=== PATIENT | male | born 1960 | race Caucasian/White ===

== ENCOUNTER 2017-08-22 14:31 | Inpatient (IN) | payer OTHER ==
[2017-08-22 15:37] LABS: Basophils # (Auto) 0.1 K/mm3 (0.0-0.1); Eosinophils % (Auto) 7.6 % (0.0-4.3); Hematocrit 40.3 % (35.5-45.6); Hemoglobin 13.9 gm/dl (11.8-15.2); Lymphocytes # (Auto) 3.2 K/mm3 (1.2-5.4); Lymphocytes % (Auto) 23.5 % (13.4-35.0); Mean Corpuscular HGB Conc 35 % (32-34); Mean Corpuscular Hemoglobin 33 pg (28-32); Mean Corpuscular Volume 94 fl (84-94); Monocytes # (Auto) 0.8 K/mm3 (0.0-0.8); Monocytes % (Auto) 5.7 % (0.0-7.3); Platelet Count 350 K/mm3 (140-440); Red Blood Count 4.29 M/mm3 (3.65-5.03); Red Cell Distribution Width 13.5 % (13.2-15.2)
[2017-08-22 15:56] LABS: Alanine Aminotransferase 13 units/L (7-56); Albumin 3.8 g/dL (3.9-5); BUN/Creatinine Ratio 29; Blood Urea Nitrogen 20 mg/dL (9-20); Calcium 9.4 mg/dL (8.4-10.2); Hemolysis Index 4
--- NOTE | 2017-08-22 18:55 | XRay Report ---
FINAL REPORT PROCEDURE: XR FOOT 3+V RT TECHNIQUE: RIGHT foot radiographs, AP, lateral, and oblique views. CPT 12204 HISTORY: Infection. Rule out osteomyelitis. Pain. COMPARISON: No prior studies are available for comparison. FINDINGS: Fracture (s) and/or Dislocation(s): None . Alignment: Normal . Joint space(s): Narrowing, osteophytes, sclerosis, and subchondral cystic change of the 1st metatarsophalangeal joint. Mild diffuse narrowing of the distal interphalangeal joints. Soft tissues: Vascular calcification. Bone mineralization: Osteopenia. Foreign bodies: None . Calcaneal spurring: None . IMPRESSION: Osteopenia and degenerative changes of the right foot. No destructive osseous lesions seen. Consider bone scan or MRI if there is continued clinical concern for osteomyelitis that may not be radiographically apparent (and if patient has no contraindication to MRI).
[2017-08-22] MEDS: NOVOLOG SUB-Q SCH (22:00)
[2017-08-23] MEDS ORDERED: MORPHINE IV ONE (01:21)
[2017-08-23] MEDS ORDERED: ZOFRAN IV ONE (01:21)
[2017-08-23] MEDS ORDERED: STERILE IV SCH (01:30)
[2017-08-23] MEDS ORDERED: ZOSYN NICU IV SCH (01:30)
[2017-08-23] MEDS ORDERED: WATER IV SCH (01:30)
[2017-08-23 01:46] LABS: Bacteria,Urine 1+ /HPF (Negative); Bilirubin,Urine NEG (Negative); Blood,Urine NEG (Negative); Color,Urine Straw (Yellow); Nitrite,Urine NEG (Negative); Protein,Urine <15 mg/dL mg/dL (Negative); Urobilinogen,Urine < 2.0 mg/dL (<2.0); WBC,Urine < 1.0 /HPF (0.0-6.0)
[2017-08-23] MEDS ORDERED: VANCOMYCIN/NS 1 GM/250 ML 1 GM/250 ML BAG IV SCH (02:00)
[2017-08-23] MEDS ORDERED: ZOSYN/NS 3.375GM/50ML 3.375 GM/50 ML BAG IV SCH (02:00)
--- NOTE | 2017-08-23 02:07 | Emergency Department Report ---
- General Chief complaint: Skin/Abscess/Foreign Body Stated complaint: RIGHT FOOT INFECTION Time Seen by Provider: 08/23/17 01:12 Source: patient Mode of arrival: Ambulatory Limitations: No Limitations ([place], [place] LANGUAGE IS [place] CITIZEN), Language Barrier - History of Present Illness Initial comments: 57 YO MALE WITH ONE MONTH RIGHT FOOT SKIN BRAK DOWN AND ULCERATIONS ON HIS TOES. PT IS IN 10/10 PAIN AND CANNOT AMBULATE ON HIS RIGHT FOOT. MD complaint: discoloration -: month(s) (1) Tetanus Up to Date: unsure Location: RLE Severity scale (0 -10): 10 Quality: aching, constant Consistency: constant Improves with: none Worsens with: palpation, movement Associated symptoms: denies other symptoms Treatments Prior to Arrival: none - Related Data Allergies Allergy/AdvReac Type Severity Reaction Status Date / Time No Known Allergies Allergy Verified 08/23/17 01:25 Abscess Boil HPI - HPI Chief Complaint: Skin/Abscess/Foreign Body Stated Complaint: RIGHT FOOT INFECTION Time Seen by Provider: 08/23/17 01:12 Allergies/Adverse Reactions: Allergies Allergy/AdvReac Type Severity Reaction Status Date / Time No Known Allergies Allergy Verified 08/23/17 01:25 ED Review of Systems ROS: Stated complaint: RIGHT FOOT INFECTION Other details as noted in HPI Constitutional: denies: chills, fever Eyes: denies: eye pain, eye discharge, vision change ENT: denies: ear pain, throat pain Respiratory: denies: cough, shortness of breath, wheezing Cardiovascular: denies: chest pain, palpitations Endocrine: no symptoms reported Gastrointestinal: denies: abdominal pain, nausea, diarrhea Genitourinary: denies: urgency, dysuria Musculoskeletal: joint swelling, arthralgia. denies: back pain Skin: denies: rash, lesions Neurological: denies: headache, weakness, paresthesias Psychiatric: denies: anxiety, depression Hematological/Lymphatic: denies: easy bleeding, easy bruising ED Past Medical Hx - Past Medical History Hx Diabetes: Yes (IDDM) - Surgical History Past Surgical History?: No ED Physical Exam - General Limitations: No Limitations General appearance: alert, in distress (PAIN) - Head Head exam: Present: atraumatic, normocephalic - Eye Eye exam: Present: normal appearance, EOMI - ENT ENT exam: Present: mucous membranes moist - Neck Neck exam: Present: normal inspection - Respiratory Respiratory exam: Present: normal lung sounds bilaterally. Absent: respiratory distress - Cardiovascular Cardiovascular Exam: Present: regular rate, normal rhythm. Absent: systolic murmur, diastolic murmur, rubs, gallop - GI/Abdominal GI/Abdominal exam: Present: soft, normal bowel sounds - Rectal Rectal exam: Present: deferred - Extremities Exam Extremities exam: Present: full ROM, tenderness (RIGHT FOOT CELLULITIS, ULCERATION OF 5TH AND 1ST TOE) - Back Exam Back exam: Present: normal inspection, full ROM - Neurological Exam Neurological exam: Present: alert, oriented X3, CN II-XII intact - Psychiatric Psychiatric exam: Present: normal affect, normal mood - Skin Skin exam: Present: warm, dry, normal color, rash (RIGHT LOWER EXTREMITY), erythema. Absent: intact (TOE ULCERATION AND 5 RIGHT TOE ULCERATION, ) ED Course Vital Signs 08/22/17 08/22/17 08/23/17 15:01 20:51 00:42 Temperature 97.8 F 98.0 F 98 F Pulse Rate 94 H 92 H 88 Respiratory 18 20 18 Rate Blood Pressure 103/70 109/79 Blood Pressure 129/86 [Left] O2 Sat by Pulse 97 98 100 Oximetry 08/23/17 01:44 Temperature Pulse Rate Respiratory 20 Rate Blood Pressure Blood Pressure [Left] O2 Sat by Pulse Oximetry ED Medical Decision Making - Lab Data Result diagrams: 08/22/17 15:16 08/22/17 15:16 Critical care attestation.: If time is entered above; I have spent that time in minutes in the direct care of this critically ill patient, excluding procedure time. ED Disposition Clinical Impression: Cellulitis and abscess of foot excluding toe Diabetic foot ulcer Qualifiers: Diabetic foot ulcer location: toe Diabetes mellitus type: type 2 Laterality: right Non-pressure ulcer stage: unspecified non-pressure ulcer stage Qualified Code(s): E11.621 - Type 2 diabetes mellitus with foot ulcer; L97.519 - Non- pressure chronic ulcer of other part of right foot with unspecified severity; L97.519 - Non-pressure chronic ulcer of other part of right foot with unspecified severity; L97.519 - Non-pressure chronic ulcer of other part of right foot with unspecified severity; L97.519 - Non-pressure chronic ulcer of other part of right foot with unspecified severity Disposition: DC-09 OP ADMIT IP TO THIS HOSP Is pt being admited?: Yes Does the pt Need Aspirin: No Condition: Stable Instructions: Diabetes Mellitus Type 2 in Adults (ED) Referrals: LEN PEÑALOZA MD [Primary Care Provider] - 3-5 Days Time of Disposition: 02:07 (CASE REVIEWED WITH DR ARIZMENDI AND SHE WILL ADMIT THE PT TO THE HOSPITAL)
--- NOTE | 2017-08-23 02:11 | History and Physical Report ---
History of Present Illness Date of examination: 08/23/17 History of present illness: 57 year old man with history of diabetes and peripheral vascular disease was just discharged from the hospital on August 12. On that admission he had a nonhealing ulcer on the right foot and subsequently underwent revascularization of his right leg. He was discharged home with Bactrim and ciprofloxacin which she completed 3 days ago. He states that the swelling of the right foot never went down. Yesterday he developed increased redness and pain of the right leg and foot, had difficulty ambulating. Complain of chills, no fever Review Of Systems: Constitutional: no weight loss Ears, eyes, nose, mouth and throat: no nasal congestion, no nasal discharge, no sinus pressure, blurry vision, diplopia Neck: No neck pain or rigidity. Cardiovascular: no chest pain, orthopnea, palpitations Respiratory: No cough Gastrointestinal: no abdominal pain, hematochezia Genitourinary : no dysuria, frequency , hematuria Musculoskeletal: no muscle ache Integumentary: no rash, no pruritis Neurological: no parathesias, focal weakness Endocrine: no cold or heat intolerance, no polyuria or polydipsia Hematologic/Lymphatic: no easy bruising, no easy bleeding, no gland swelling Allergic/Immunologic: no urticaria, no angioedema. PAST MEDICAL HISTORY:DM PAST SURGICAL HISTORY: NONE FAMILY HISTORY: Hypertension, diabetes SOCIAL HISTORY: Denies alcohol, tobacco, drugs Medications and Allergies Allergies Allergy/AdvReac Type Severity Reaction Status Date / Time No Known Allergies Allergy Verified 08/23/17 01:25 Active Meds: Active Medications Piperacillin Sod/Tazobactam Sod (Zosyn/Ns 3.375gm/50ml) 3.375 gm in 50 mls @ 100 mls/hr IV Q8H [facility] Vancomycin HCl 1,250 mg/ (Sodium Chloride) 262.5 mls @ 166.667 mls/hr IV Q12H [facility] Exam - Physical Exam Narrative exam: Gen. appearance: Patient lying in bed in no acute distress HEENT: Normocephalic/atraumatic, pupils equal round reactive to light, extra alkaline movement intact, no scleral icterus, no JVD or thyromegaly or nodule, neck is supple, mucous membrane moist, no erythema or exudate Heart: S1-S2, regular rate and rhythm Lungs: Crackles bilateral breathing comfortable Abdomen: Positive bowel sounds, nontender, nondistended, no organomegaly Extremities:Right foot erythema, tender, also on the great toe and noted between medial aspect of the fifth digit, No edema, cyanosis, clubbing Neuro:: Oriented 3 , cranial nerves II-12 intact, speech, motor intact Skin: No rash, nodules, warm dry - Constitutional Vitals: Temp Pulse Resp BP Pulse Ox 98 F 88 20 129/86 100 08/23/17 00:42 08/23/17 00:42 08/23/17 01:44 08/23/17 00:42 08/23/17 00:42 Results - Labs CBC & Chem 7: 08/22/17 15:16 08/22/17 15:16 Labs: Abnormal lab results 08/22/17 08/22/17 Range/Units 15:16 15:16 WBC 13.5 H (4.5-11.0) K/mm3 MCH 33 H (28-32) pg MCHC 35 H (32-34) % Eos % (Auto) 7.6 H (0.0-4.3) % Eos # 1.0 H (0.0-0.4) K/mm3 Seg Neutrophils # 8.4 H (1.8-7.7) K/mm3 Sodium 135 L (137-145) mmol/L Chloride 93.3 L (98-107) mmol/L Creatinine 0.7 L (0.8-1.5) mg/dL Glucose 332 H (75-100) mg/dL Alkaline Phosphatase 144 H (35-129) units/L Albumin 3.8 L (3.9-5) g/dL Assessment and Plan X-ray of the foot reviewed Assessment Cellulitis and ulcers of the right foot Peripheral vascular disease, Status post revascularization of the right leg DM Admit to medicine Start IV Zosyn, vancomycin, follow cultures Consult Dr. Kee IV morphine, check fingersticks,, initiate insulin sliding scale DVT prophalaxis
[2017-08-23] MEDS ORDERED: MILK OF MAGNESIA PO PRN (02:13)
[2017-08-23] MEDS ORDERED: D50W (25GM) Syringe IV PRN ×2 (02:13→09:37)
[2017-08-23] MEDS ORDERED: DULCOLAX PR PRN (02:13)
[2017-08-23] MEDS ORDERED: ZOFRAN IV PRN (02:13)
[2017-08-23] MEDS ORDERED: BOOSTRIX IM ONE (02:14)
[2017-08-23] MEDS: VANCOMYCIN 1,250 MG in NACL 0.9% 250ML 250 ML IV SCH ×2 (02:25→13:47)
[2017-08-23] MEDS: MORPHINE IV PRN ×4 (04:29→22:53)
[2017-08-23] MEDS: ZOSYN/NS 4.5GM/100ML 4.5 GM/100 ML VIAL IV SCH ×2 (08:18→18:31)
[2017-08-23] MEDS ORDERED: LOVENOX SUB-Q SCH (10:00)
[2017-08-23] MEDS: PLAVIX PO SCH (10:44)
[2017-08-23] MEDS: BABY ASPIRIN PO SCH (10:44)
[2017-08-23] MEDS: LOVENOX SUB-Q SCH (10:44)
[2017-08-23 10:47] LABS: Chol/HDL Ratio 5.75 %
[2017-08-23] MEDS: LEVEMIR SUB-Q SCH ×2 (10:51→22:49)
--- NOTE | 2017-08-23 11:11 | Consultation ---
History of Present Illness - Reason for Consult Consult date: 08/23/17 Right foot pain - History of Present Illness 57 year old man with history of diabetes and peripheral vascular disease was just discharged from the hospital on August 12. On that admission he had a nonhealing ulcer on the right foot and right sided rest pain with claudication and subsequently underwent revascularization of his right leg. He was discharged home with Bactrim and ciprofloxacin which he completed 3 days ago. He never followed up with wound care. Yesterday developed increased redness and pain of the right leg and foot, and had difficulty ambulating. On physical examination, the patient has a small eschar of the first digit, and an ulceration between the interspaces of his fourth and fifth digit. The fifth digit has some paleness concerning for underlying infection/purulence. He has a bounding right popliteal pulse and a palpable right dorsalis pedis pulse. He is a mild amount of right lower extremity swelling, secondary to his reperfusion swelling which is an expected postprocedural outcome. Past History Past Medical History: diabetes, PVD Past Surgical History: Other (revasc 08/17) Social history: denies: smoking, alcohol abuse, IV drug use Family history: no significant family history Medications and Allergies Allergies Allergy/AdvReac Type Severity Reaction Status Date / Time No Known Allergies Allergy Verified 08/23/17 01:25 Active Meds: Active Medications Acetaminophen (Tylenol) 650 mg PO Q4H PRN PRN Reason: Pain MILD(1-3)/Fever >100.5/VIVAS Aspirin (Baby Aspirin) 81 mg PO QDAY [facility] Last Admin: 08/23/17 10:44 Dose: 81 mg Bisacodyl (Dulcolax) 10 mg [place] QDAY PRN PRN Reason: Constipation unrelieved by MOM Clopidogrel Bisulfate (Plavix) 75 mg PO DAILY [facility] Last Admin: 08/23/17 10:44 Dose: 75 mg Dextrose (D50w (25gm) Syringe) 50 ml IV PRN PRN PRN Reason: Hypoglycemia Enoxaparin Sodium (Lovenox) 40 mg SUB-Q QDAY@1000 [facility] Last Admin: 08/23/17 10:44 Dose: 40 mg Vancomycin HCl 1,250 mg/ (Sodium Chloride) 262.5 mls @ 166.667 mls/hr IV Q12H [facility] Last Admin: 08/23/17 02:25 Dose: 166.667 mls/hr Piperacillin Sod/Tazobactam Sod (Zosyn/Ns 4.5gm/100ml) 4.5 gm in 100 mls @ 200 mls/hr IV Q8H [facility] PRN Reason: Protocol Last Admin: 08/23/17 08:18 Dose: 200 mls/hr Insulin Aspart (Novolog) 0 units SUB-Q ACHS [facility] PRN Reason: Protocol Insulin Detemir (Levemir) 10 units SUB-Q BID [facility] Last Admin: 08/23/17 10:51 Dose: 10 units Magnesium Hydroxide (Milk Of Magnesia) 30 ml PO Q4H PRN PRN Reason: Constipation Morphine Sulfate (Morphine) 2 mg IV Q4H PRN PRN Reason: Pain, Moderate (4-6) Last Admin: 08/23/17 10:48 Dose: 2 mg Ondansetron HCl (Zofran) 4 mg IV Q8H PRN PRN Reason: N/V unrelieved by Reglan Review of Systems All systems: negative (see HPI) Constitutional: no fever (see HPI) Exam - Constitutional Vitals: Temp Pulse Resp BP Pulse Ox 98.1 F 87 20 126/81 99 08/23/17 07:48 08/23/17 07:48 08/23/17 07:48 08/23/17 07:48 08/23/17 08:01 General appearance: Present: no acute distress - EENT Eyes: Present: EOM intact ENT: hearing intact - Respiratory Respiratory effort: normal - Extremities Extremities: pulses intact (right DP, right popliteal) Extremity abnormal: edema (mild RLE), erythema (mild RLE), black (small eschar on 5th and 1st digit), pulses diminished (left pedal pulses nonpalpable), other (purulence between 4-5th digit web space) - Psychiatric Psychiatric: appropriate mood/affect, cooperative Results - Labs CBC & Chem 7: 08/22/17 15:16 08/22/17 15:16 Labs: Abnormal lab results 08/22/17 08/22/17 08/23/17 Range/Units 15:16 15:16 05:44 WBC 13.5 H (4.5-11.0) K/mm3 MCH 33 H (28-32) pg MCHC 35 H (32-34) % Eos % (Auto) 7.6 H (0.0-4.3) % Eos # 1.0 H (0.0-0.4) K/mm3 Seg Neutrophils # 8.4 H (1.8-7.7) K/mm3 Sodium 135 L (137-145) mmol/L Chloride 93.3 L (98-107) mmol/L Creatinine 0.7 L (0.8-1.5) mg/dL Glucose 332 H (75-100) mg/dL POC Glucose 313 H (70-105) Alkaline Phosphatase 144 H (35-129) units/L Albumin 3.8 L (3.9-5) g/dL Triglycerides (2-149) mg/dL HDL Cholesterol (40-59) mg/dL 08/23/ Range/Units 10:01 WBC (4.5-11.0) K/mm3 MCH (28-32) pg MCHC (32-34) % Eos % (Auto) (0.0-4.3) % Eos # (0.0-0.4) K/mm3 Seg Neutrophils # (1.8-7.7) K/mm3 Sodium (137-145) mmol/L Chloride (98-107) mmol/L Creatinine (0.8-1.5) mg/dL Glucose (75-100) mg/dL POC Glucose (70-105) Alkaline Phosphatase (35-129) units/L Albumin (3.9-5) g/dL Triglycerides 215 H (2-149) mg/dL HDL Cholesterol 32 L (40-59) mg/dL Assessment and Plan 57-year-old male with peripheral vascular disease and diabetic neuropathy who previously presented with rest pain of the right lower extremity and nonhealing ulcers who subsequently underwent successful revascularization of the right lower extremity with good technical result. Continue aspirin and Plavix. He continues to have a palpable right popliteal pulse and dorsalis pedis pulse compatible with his prior successful revascularization. I will obtain an arterial duplex of the with ABIs to ensure adequate healing and that no re-intervention needs to be performed. The patient's diabetic infection appears to have worsened. Agree with IV antibiotics as oral antibiotics were unsuccessful. Agree with wound culture of the fourth and fifth digit as empiric therapy was unsuccessful. Consider infectious disease consult. Recommend wound care consult for the fifth digit, fourth to fifth digit interspace, and first digit. The infection appears to be arising from the fourth to fifth digit interspace in the fifth digit.
[2017-08-23] MEDS: NOVOLOG SUB-Q SCH ×2 (12:14→17:23)
--- NOTE | 2017-08-23 12:49 | Progress Note ---
Assessment and Plan Assessment and plan: Cellulitis with abscess collection of the right foot - Vascular surgery consulted and evaluated, blood flow is good - Dr. Jensen consulted for debridement - Patient is on IV vancomycin and Zosyn Diabetes mellitus with hyperglycemia - Patient is on SS insulin and long-acting insulin - Accu-Chek, adjust as needed DVT prophylaxis - On lovenox Disposition - Continue inpatient care. History Interval history: Patient was seen and evaluated this morning, no new complaints. Hospitalist Physical - Physical exam Narrative exam: Not in cardiopulmonary distress. The patient appeared well nourished and normally developed. Vital signs as documented. Head exam is unremarkable. No scleral icterus . Neck is without jugular venous distension, thyromegaly, or carotid bruits. Lungs are clear to auscultation. Cardiac exam reveals regular rate and Rhythm. First and second heart sounds normal. No murmurs, rubs or gallops. Abdominal exam reveals normal bowel sounds, no masses, no organomegaly and no aortic enlargement. Extremities erythematous right foot, looks like abscess on the 5th toes. [employer]: Alert and oriented 3. No focal weakness. - Constitutional Vitals: Temp Pulse Resp BP Pulse Ox 98.1 F 87 20 126/81 99 08/23/17 07:48 08/23/17 07:48 08/23/17 07:48 08/23/17 07:48 08/23/17 08:01 General appearance: Present: no acute distress Results - Labs CBC & Chem 7: 08/22/17 15:16 08/22/17 15:16 Labs: Laboratory Last Values WBC 13.5 K/mm3 (4.5-11.0) H 08/22/17 15:16 RBC 4.29 M/mm3 (3.65-5.03) 08/22/17 15:16 Hgb 13.9 gm/dl (11.8-15.2) 08/22/17 15:16 Hct 40.3 % (35.5-45.6) 08/22/17 15:16 MCV 94 fl (84-94) 08/22/17 15:16 MCH 33 pg (28-32) H 08/22/17 15:16 MCHC 35 % (32-34) H 08/22/17 15:16 RDW 13.5 % (13.2-15.2) 08/22/17 15:16 Plt Count 350 K/mm3 (140-440) 08/22/17 15:16 Lymph % (Auto) 23.5 % (13.4-35.0) 08/22/17 15:16 [place] % (Auto) 5.7 % (0.0-7.3) 08/22/17 15:16 Eos % (Auto) 7.6 % (0.0-4.3) H 08/22/17 15:16 Baso % (Auto) 1.0 % (0.0-1.8) 08/22/17 15:16 Lymph # 3.2 K/mm3 (1.2-5.4) 08/22/17 15:16 [place] # 0.8 K/mm3 (0.0-0.8) 08/22/17 15:16 Eos # 1.0 K/mm3 (0.0-0.4) H 08/22/17 15:16 Baso # 0.1 K/mm3 (0.0-0.1) 08/22/17 15:16 Seg Neutrophils % 62.2 % (40.0-70.0) 08/22/17 15:16 Seg Neutrophils # 8.4 K/mm3 (1.8-7.7) H 08/22/17 15:16 Sodium 135 mmol/L (137-145) L 08/22/17 15:16 Potassium 4.8 mmol/L (3.6-5.0) 08/22/17 15:16 Chloride 93.3 mmol/L (98-107) L 08/22/17 15:16 Carbon Dioxide 27 mmol/L (22-30) 08/22/17 15:16 Anion Gap 20 mmol/L 08/22/17 15:16 BUN 20 mg/dL (9-20) 08/22/17 15:16 Creatinine 0.7 mg/dL (0.8-1.5) L 08/22/17 15:16 Estimated GFR > 60 ml/min 08/22/17 15:16 BUN/Creatinine Ratio 29 % 08/22/17 15:16 Glucose 332 mg/dL (75-100) H 08/22/17 15:16 POC Glucose 321 (70-105) H 08/23/17 11:46 Hemoglobin A1c 12.3 % (4-6) H 08/23/17 10:01 Lactic Acid 1.80 mmol/L (0.7-2.0) 08/22/17 18:03 Calcium 9.4 mg/dL (8.4-10.2) 08/22/17 15:16 Total Bilirubin 0.20 mg/dL (0.1-1.2) 08/22/17 15:16 AST 11 units/L (5-40) 08/22/17 15:16 ALT 13 units/L (7-56) 08/22/17 15:16 Alkaline Phosphatase 144 units/L (35-129) H 08/22/17 15:16 Total Protein 7.1 g/dL (6.3-8.2) 08/22/17 15:16 Albumin 3.8 g/dL (3.9-5) L 08/22/17 15:16 Albumin/Globulin Ratio 1.2 % 08/22/17 15:16 Triglycerides 215 mg/dL (2-149) H 08/23/17 10:01 Cholesterol 184 mg/dL (50-199) 08/23/17 10:01 LDL Cholesterol Direct 109 mg/dL (50-130) 08/23/17 10:01 HDL Cholesterol 32 mg/dL (40-59) L 08/23/17 10:01 Cholesterol/HDL Ratio 5.75 % 08/23/17 10:01 Urine Color Straw (Yellow) 08/22/17 Unknown Urine Turbidity Clear (Clear) 08/22/17 Unknown Urine pH 6.0 (5.0-7.0) 08/22/17 Unknown Ur Specific [place] 1.011 (1.003-1.030) 08/22/17 Unknown Urine Protein <15 mg/dl mg/dL (Negative) 08/22/17 Unknown Urine Glucose (UA) >=500 mg/dL (Negative) 08/22/17 Unknown Urine Ketones Neg mg/dL (Negative) 08/22/17 Unknown Urine Blood Neg (Negative) 08/22/17 Unknown Urine Nitrite Neg (Negative) 08/22/17 Unknown Urine Bilirubin Neg (Negative) 08/22/17 Unknown Urine Urobilinogen < 2.0 mg/dL (<2.0) 08/22/17 Unknown Ur Leukocyte Esterase Neg (Negative) 08/22/17 Unknown Urine WBC (Auto) < 1.0 /HPF (0.0-6.0) 08/22/17 Unknown Urine RBC (Auto) 1.0 /HPF (0.0-6.0) 08/22/17 Unknown Urine Bacteria (Auto) 1+ /HPF (Negative) 08/22/17 Unknown
--- NOTE | 2017-08-23 19:10 | Consultation ---
History of Present Illness Consult date: 08/23/17 Reason for consult: other (Diabetic right foot infection) - History of present illness History of present illness: 57 yo diabetic s/p recent revascularization of his RLE for rest pain. He was admitted for a worsening right foot infection. Past History Past Medical History: diabetes, PVD Past Surgical History: Other (revasc 08/17) Social history: denies: smoking, alcohol abuse, IV drug use Family history: no significant family history Medications and Allergies Allergies Allergy/AdvReac Type Severity Reaction Status Date / Time No Known Allergies Allergy Verified 08/23/17 01:25 Active Meds: Active Medications Acetaminophen (Tylenol) 650 mg PO Q4H PRN PRN Reason: Pain MILD(1-3)/Fever >100.5/VIVAS Aspirin (Baby Aspirin) 81 mg PO QDAY [facility] Last Admin: 08/23/17 10:44 Dose: 81 mg Bisacodyl (Dulcolax) 10 mg [place] QDAY PRN PRN Reason: Constipation unrelieved by MOM Clopidogrel Bisulfate (Plavix) 75 mg PO DAILY [facility] Last Admin: 08/23/17 10:44 Dose: 75 mg Dextrose (D50w (25gm) Syringe) 50 ml IV PRN PRN PRN Reason: Hypoglycemia Enoxaparin Sodium (Lovenox) 40 mg SUB-Q QDAY@1000 [facility] Last Admin: 08/23/17 10:44 Dose: 40 mg Vancomycin HCl 1,250 mg/ (Sodium Chloride) 262.5 mls @ 166.667 mls/hr IV Q12H [facility] Last Admin: 08/23/17 13:47 Dose: 166.667 mls/hr Piperacillin Sod/Tazobactam Sod (Zosyn/Ns 4.5gm/100ml) 4.5 gm in 100 mls @ 200 mls/hr IV Q8H [facility] PRN Reason: Protocol Last Admin: 08/23/17 18:31 Dose: 200 mls/hr Insulin Aspart (Novolog) 0 units SUB-Q ACHS [facility] PRN Reason: Protocol Last Admin: 08/23/17 17:23 Dose: 10 units Insulin Detemir (Levemir) 10 units SUB-Q BID [facility] Last Admin: 08/23/17 10:51 Dose: 10 units Magnesium Hydroxide (Milk Of Magnesia) 30 ml PO Q4H PRN PRN Reason: Constipation Morphine Sulfate (Morphine) 2 mg IV Q4H PRN PRN Reason: Pain, Moderate (4-6) Last Admin: 08/23/17 17:08 Dose: 2 mg Ondansetron HCl (Zofran) 4 mg IV Q8H PRN PRN Reason: N/V unrelieved by Reglan Review of Systems All systems: negative Exam Vital Signs Temp Pulse Resp BP Pulse Ox 97.8 F 94 H 18 103/70 97 08/22/17 15:01 08/22/17 15:01 08/22/17 15:01 08/22/17 15:01 08/22/17 15:01 - Extremities Extremities: abnormal (Right foot has a 2+ DP pulse. There is an ulceration on the medial aspect of his right 5th toe with apparent dry, necrotic SQ tissue and possibly tendon. There is no drainage from this ulceration. I cannot appreciate any findings c/w an abscess of the adjacent area.) Results - Labs 08/22/17 15:16 08/22/17 15:16 Abnormal lab results 08/23/17 08/23/17 08/23/17 Range/Units 05:44 10:01 10:01 POC Glucose 313 H (70-105) Hemoglobin A1c 12.3 H (4-6) % Triglycerides 215 H (2-149) mg/dL HDL Cholesterol 32 L (40-59) mg/dL 08/23/17 08/23/17 Range/Units 11:46 16:10 POC Glucose 321 H 411 H (70-105) Hemoglobin A1c (4-6) % Triglycerides (2-149) mg/dL HDL Cholesterol (40-59) mg/dL Diabetes panel 08/23/17 08/23/17 Range/Units 10:01 10:01 Hemoglobin A1c 12.3 H (4-6) % Triglycerides 215 H (2-149) mg/dL HDL Cholesterol 32 L (40-59) mg/dL Assessment and Plan - Patient Problems (1) Diabetic foot ulcer Current Visit: Yes Status: Acute Qualifiers: Diabetic foot ulcer location: toe Diabetes mellitus type: type 2 Laterality: right Non-pressure ulcer stage: unspecified non-pressure ulcer stage Qualified Code(s): E11.621 - Type 2 diabetes mellitus with foot ulcer; L97.519 - Non-pressure chronic ulcer of other part of right foot with unspecified severity; L97.519 - Non-pressure chronic ulcer of other part of right foot with unspecified severity; L97.519 - Non-pressure chronic ulcer of other part of right foot with unspecified severity; L97.519 - Non-pressure chronic ulcer of other part of right foot with unspecified severity Plan to address problem: 1) Strict DM control 2) Continue antibiotics 3) Check LE arterial doppler result 4) MRI of right foot to r/o abscess
[2017-08-24] MEDS: VANCOMYCIN 1,250 MG in NACL 0.9% 250ML 250 ML IV SCH ×2 (02:00→14:39)
[2017-08-24 05:32] LABS: Hematocrit 38.5 % (35.5-45.6); Hemoglobin 12.9 gm/dl (11.8-15.2); Mean Corpuscular HGB Conc 34 % (32-34); Mean Corpuscular Hemoglobin 32 pg (28-32); Mean Corpuscular Volume 94 fl (84-94); Platelet Count 374 K/mm3 (140-440); Red Blood Count 4.11 M/mm3 (3.65-5.03); Red Cell Distribution Width 13.3 % (13.2-15.2)
[2017-08-24] MEDS: MORPHINE IV PRN ×4 (05:51→22:46)
[2017-08-24 05:54] LABS: BUN/Creatinine Ratio 24; Blood Urea Nitrogen 19 mg/dL (9-20); Calcium 8.9 mg/dL (8.4-10.2); Hemolysis Index 3
[2017-08-24 07:29] LABS: Anisocytosis 1+; Basophils % (Manual) 0 % (0.0-1.8); Burr Cells Rare; Total Cells Counted 100
[2017-08-24] MEDS: NOVOLOG SUB-Q SCH ×4 (07:30→22:57)
[2017-08-24] MEDS: ZOSYN/NS 4.5GM/100ML 4.5 GM/100 ML VIAL IV SCH ×3 (08:00→16:17)
[2017-08-24] MEDS: LOVENOX SUB-Q SCH (10:25)
[2017-08-24] MEDS: PLAVIX PO SCH (10:25)
[2017-08-24] MEDS: BABY ASPIRIN PO SCH (10:25)
[2017-08-24] MEDS: LEVEMIR SUB-Q SCH ×2 (10:26→22:56)
--- NOTE | 2017-08-24 12:02 | Progress Note ---
Assessment and Plan 57-year-old male with peripheral vascular disease and diabetic neuropathy who previously presented with rest pain of the right lower extremity and nonhealing ulcers who subsequently underwent successful revascularization of the right lower extremity with good technical result. Continue aspirin and Plavix. He continues to have a palpable right popliteal pulse and dorsalis pedis pulse compatible with his prior successful revascularization. Arterial duplex confirms adequate perfusion to the right lower extremity (JOSHUA aprox 1), although there are some monophasic waveforms suggesting some element of residual superficial femoral artery narrowing. The patient should have adequate flow to heal. He will need to follow-up for monitoring as an outpatient. Agree with wound culture of the fourth and fifth digit as empiric therapy was unsuccessful. Consider infectious disease consult. Will defer management of wounds to Dr. Jensen and wound care. Subjective Date of service: 08/24/17 Interval history: On antibiotics. Arterial duplex performed. MRI being performed. Objective - Constitutional Vitals: Vital Signs - 12hr 08/24/17 08/24/17 08/24/17 05:51 06:21 07:23 Temperature 98.7 F Pulse Rate 82 Respiratory 18 18 20 Rate Blood Pressure 124/73 O2 Sat by Pulse 94 Oximetry - Labs CBC & Chem 7: 08/24/17 05:17 08/24/17 05:17 Labs: Abnormal lab results 08/23/17 08/23/17 08/24/17 Range/Units 16:10 21:17 05:17 WBC 13.9 H (4.5-11.0) K/mm3 Monocytes % (Manual) 8.0 H (0.0-7.3) % Eosinophils % (Manual) 18.0 H (0.0-4.3) % Monocytes # (Manual) 1.1 H (0.0-0.8) K/mm3 Eosinophils # (Manual) 2.5 H (0.0-0.4) K/mm3 Glucose (75-100) mg/dL POC Glucose 411 H 183 H (70-105) 08/24/17 08/24/17 08/24/17 Range/Units 05:17 05:25 11:08 WBC (4.5-11.0) K/mm3 Monocytes % (Manual) (0.0-7.3) % Eosinophils % (Manual) (0.0-4.3) % Monocytes # (Manual) (0.0-0.8) K/mm3 Eosinophils # (Manual) (0.0-0.4) K/mm3 Glucose 142 H (75-100) mg/dL POC Glucose 143 H 273 H (70-105)
--- NOTE | 2017-08-24 13:44 | Magnetic Resonance Report ---
FINAL REPORT EXAM: MR LE NONJOINT RT WO/W CON HISTORY: Ulcer of right 5th toe TECHNIQUE: Fat sensitive and fluid sensitive MR sequences of the right foot were performed in axial, coronal and sagittal planes. Pre and post-contrast imaging performed. PRIORS: None. FINDINGS: There is some edema involving the 1st distal phalanx. There is also edema involving the 5th digit., Mostly the 5th proximal phalanx. Post-contrast images demonstrate enhancement involving the 5th proximal phalanx. I cannot exclude osteomyelitis this region. There is mild enhancement of the 1st distal phalanx. There is no bony edema involving the midfoot or posterior foot. A IMPRESSION: There is bone edema and enhancement involving the 5th proximal phalanx. This could be compatible with osteomyelitis. There is also nonspecific likes notable edema and enhancement involving the 1st distal phalanx. Osteomyelitis in this area also not excluded.
--- NOTE | 2017-08-24 15:21 | Vascular Lab Report ---
LOWER EXTREMITY ARTERIAL DUPLEX: REASON FOR EXAM: Peripheral arterial disease. COMMENTS ON THE RIGHT: Triphasic waveforms are seen proximally. Monophasic waveforms are seen in the superficial femoral artery with preserved flow velocities. Monophasic waveforms are seen distally. The posterior tibial artery has a diminutive velocity of 24 CM/S. The anterior tibial artery has a preserved velocity similar to the popliteal artery velocity. There is a significant drop in velocities from the popliteal artery to the posterior tibial artery. No focal significant plaque is identified. Findings are consistent with abnormal perfusion. Findings are consistent with the ability to heal distal wounds. COMMENTS ON THE LEFT: Biphasic and triphasic waveforms are seen proximally. Biphasic and triphasic waveforms are seen in the proximal and mid superficial femoral artery with monophasic waveform seen in the distal superficial femoral artery. Monophasic waveforms are seen distally. There is a decline in velocities from the mid superficial femoral artery to the distal superficial femoral artery.Findings are consistent with abnormal perfusion. Findings are possibly compromised with the ability to heal distal wounds. IMPRESSION: RIGHT: There is an element of arterial disease in the superficial femoral artery which should be correlated to physical exam. The posterior tibial artery has decreased flow within it. Correlate to ABIs. LEFT:Femoral-popliteal and infrapopliteal arterial disease.
--- NOTE | 2017-08-24 20:45 | Progress Note ---
Assessment and Plan Assessment and plan: 57 yo diabetic, with diabetic neuropathy s/p recent revascularization of his RLE for rest pain. He was admitted for a worsening right foot infection. Cellulitis with abscess collection of the right foot - Vascular surgery consulted and evaluated, blood flow is good - Dr. Jensen consulted for debridement - Patient is on IV vancomycin and Zosyn - ID consult Osteomylitis -ID consult -Continue IV abx -Wound care consult Diabetes mellitus with hyperglycemia - Patient is on SS insulin and long-acting insulin - Accu-Chek, adjust as needed Severe PVD -Continue plavix and aspirin. Start Statin -s/p RLE Revascularization -Vascular following. DVT prophylaxis - On lovenox Disposition - Continue inpatient care. History Interval history: Patient seen and examined, still with pain in the right lower ext, denies any chest pain, nausea, vomiting and diarrhea. Hospitalist Physical - Constitutional Vitals: Temp Pulse Resp BP Pulse Ox 99.0 F 88 20 107/75 98 08/24/17 19:45 08/24/17 19:45 08/24/17 19:45 08/24/17 19:45 08/24/17 19:45 General appearance: Present: no acute distress - EENT Eyes: Present: PERRL, EOM intact ENT: hearing intact - Neck Neck: Present: supple, normal ROM - Respiratory Respiratory effort: normal Respiratory: bilateral: CTA - Cardiovascular Rhythm: regular Heart Sounds: Present: S1 & S2. Absent: systolic murmur, diastolic murmur - Extremities Extremities: no ischemia, pulses intact, Full ROM Extremity abnormal: edema (1+ edema right lower ext), erythema (RLE) Peripheral Pulses: abnormal (diminshed right edema (mild RLE), erythema (mild RLE), black (small eschar on 5th and 1st digit), pulses diminished other ( purulence between 4-5th digit web space)) - Abdominal General gastrointestinal: soft, non-tender, non-distended, normal bowel sounds - Integumentary Integumentary: Present: warm (right lower ext), erythema - Psychiatric Psychiatric: appropriate mood/affect, cooperative - Neurologic Neurologic: CNII-XII intact Results - Labs CBC & Chem 7: 08/25/17 05:02 08/24/17 05:17 Labs: Laboratory Last Values WBC 13.9 K/mm3 (4.5-11.0) H 08/24/17 05:17 RBC 4.11 M/mm3 (3.65-5.03) 08/24/17 05:17 Hgb 12.9 gm/dl (11.8-15.2) 08/24/17 05:17 Hct 38.5 % (35.5-45.6) 08/24/17 05:17 MCV 94 fl (84-94) 08/24/17 05:17 MCH 32 pg (28-32) 08/24/17 05:17 MCHC 34 % (32-34) 08/24/17 05:17 RDW 13.3 % (13.2-15.2) 08/24/17 05:17 Plt Count 374 K/mm3 (140-440) 08/24/17 05:17 Lymph % (Auto) 23.5 % (13.4-35.0) 08/22/17 15:16 [place] % (Auto) 5.7 % (0.0-7.3) 08/22/17 15:16 Eos % (Auto) [employer] 08/24/17 05:17 Baso % (Auto) 1.0 % (0.0-1.8) 08/22/17 15:16 Lymph # 3.2 K/mm3 (1.2-5.4) 08/22/17 15:16 [place] # 0.8 K/mm3 (0.0-0.8) 08/22/17 15:16 Eos # 1.0 K/mm3 (0.0-0.4) H 08/22/17 15:16 Baso # 0.1 K/mm3 (0.0-0.1) 08/22/17 15:16 Add Manual Diff Complete 08/24/17 05:17 Total Counted 100 08/24/17 05:17 Seg Neutrophils % 62.2 % (40.0-70.0) 08/22/17 15:16 Seg Neuts % (Manual) 53.0 % (40.0-70.0) 08/24/17 05:17 Band Neutrophils % 0 % 08/24/17 05:17 Lymphocytes % (Manual) 21.0 % (13.4-35.0) 08/24/17 05:17 Reactive Lymphs % (Man) 0 % 08/24/17 05:17 Monocytes % (Manual) 8.0 % (0.0-7.3) H 08/24/17 05:17 Eosinophils % (Manual) 18.0 % (0.0-4.3) H 08/24/17 05:17 Basophils % (Manual) 0 % (0.0-1.8) 08/24/17 05:17 Metamyelocytes % 0 % 08/24/17 05:17 Myelocytes % 0 % 08/24/17 05:17 Promyelocytes % 0 % 08/24/17 05:17 Blast Cells % 0 % 08/24/17 05:17 Nucleated RBC % Not Reportable 08/24/17 05:17 Seg Neutrophils # 8.4 K/mm3 (1.8-7.7) H 08/22/17 15:16 Seg Neutrophils # Man 7.4 K/mm3 (1.8-7.7) 08/24/17 05:17 Band Neutrophils # 0.0 K/mm3 08/24/17 05:17 Lymphocytes # (Manual) 2.9 K/mm3 (1.2-5.4) 08/24/17 05:17 Abs React Lymphs (Man) 0.0 K/mm3 08/24/17 05:17 Monocytes # (Manual) 1.1 K/mm3 (0.0-0.8) H 08/24/17 05:17 Eosinophils # (Manual) 2.5 K/mm3 (0.0-0.4) H 08/24/17 05:17 Basophils # (Manual) 0.0 K/mm3 (0.0-0.1) 08/24/17 05:17 Metamyelocytes # 0.0 K/mm3 08/24/17 05:17 Myelocytes # 0.0 K/mm3 08/24/17 05:17 Promyelocytes # 0.0 K/mm3 08/24/17 05:17 Blast Cells # 0.0 K/mm3 08/24/17 05:17 WBC Morphology Not Reportable 08/24/17 05:17 Hypersegmented Neuts Not Reportable 08/24/17 05:17 Hyposegmented Neuts Not Reportable 08/24/17 05:17 Hypogranular Neuts Not Reportable 08/24/17 05:17 Smudge Cells Not Reportable 08/24/17 05:17 Toxic Granulation Not Reportable 08/24/17 05:17 Toxic Vacuolation Not Reportable 08/24/17 05:17 Dohle Bodies Not Reportable 08/24/17 05:17 Pelger-Huet Anomaly Not Reportable 08/24/17 05:17 Axel Rods Not Reportable 08/24/17 05:17 Platelet Estimate Appears normal 08/24/17 05:17 Clumped Platelets Not Reportable 08/24/17 05:17 Plt Clumps, EDTA Not Reportable 08/24/17 05:17 Large Platelets Not Reportable 08/24/17 05:17 Giant Platelets Not Reportable 08/24/17 05:17 Platelet Satelliting Not Reportable 08/24/17 05:17 Plt Morphology Comment Not Reportable 08/24/17 05:17 RBC Morphology Not Reportable 08/24/17 05:17 Dimorphic RBCs Not Reportable 08/24/17 05:17 Polychromasia Not Reportable 08/24/17 05:17 Hypochromasia Not Reportable 08/24/17 05:17 Poikilocytosis Not Reportable 08/24/17 05:17 Anisocytosis 1+ 08/24/17 05:17 Microcytosis Not Reportable 08/24/17 05:17 Macrocytosis Not Reportable 08/24/17 05:17 Spherocytes Not Reportable 08/24/17 05:17 Pappenheimer Bodies Not Reportable 08/24/17 05:17 Sickle Cells Not Reportable 08/24/17 05:17 Target Cells Not Reportable 08/24/17 05:17 Tear Drop Cells Not Reportable 08/24/17 05:17 Ovalocytes Not Reportable 08/24/17 05:17 Helmet Cells Not Reportable 08/24/17 05:17 [place] Bodies Not Reportable 08/24/17 05:17 Leonard Rings Not Reportable 08/24/17 05:17 Lucretia Cells Rare 08/24/17 05:17 Bite Cells Not Reportable 08/24/17 05:17 Crenated Cell Not Reportable 08/24/17 05:17 Elliptocytes Not Reportable 08/24/17 05:17 Acanthocytes (Spur) Not Reportable 08/24/17 05:17 Rouleaux Not Reportable 08/24/17 05:17 Hemoglobin C Crystals Not Reportable 08/24/17 05:17 Schistocytes Not Reportable 08/24/17 05:17 Malaria parasites Not Reportable 08/24/17 05:17 Caleb Bodies Not Reportable 08/24/17 05:17 Hem Pathologist Commnt No 08/24/17 05:17 Sodium 138 mmol/L (137-145) 08/24/17 05:17 Potassium 4.2 mmol/L (3.6-5.0) 08/24/17 05:17 Chloride 98.4 mmol/L (98-107) 08/24/17 05:17 Carbon Dioxide 26 mmol/L (22-30) 08/24/17 05:17 Anion Gap 18 mmol/L 08/24/17 05:17 BUN 19 mg/dL (9-20) 08/24/17 05:17 Creatinine 0.8 mg/dL (0.8-1.5) 08/24/17 05:17 Estimated GFR > 60 ml/min 08/24/17 05:17 BUN/Creatinine Ratio 24 % 08/24/17 05:17 Glucose 142 mg/dL (75-100) H 08/24/17 05:17 POC Glucose 180 (70-105) H 08/24/17 16:27 Hemoglobin A1c 12.3 % (4-6) H 08/23/17 10:01 Lactic Acid 1.80 mmol/L (0.7-2.0) 08/22/17 18:03 Calcium 8.9 mg/dL (8.4-10.2) 08/24/17 05:17 Total Bilirubin 0.20 mg/dL (0.1-1.2) 08/22/17 15:16 AST 11 units/L (5-40) 08/22/17 15:16 ALT 13 units/L (7-56) 08/22/17 15:16 Alkaline Phosphatase 144 units/L (35-129) H 08/22/17 15:16 Total Protein 7.1 g/dL (6.3-8.2) 08/22/17 15:16 Albumin 3.8 g/dL (3.9-5) L 08/22/17 15:16 Albumin/Globulin Ratio 1.2 % 08/22/17 15:16 Triglycerides 215 mg/dL (2-149) H 08/23/17 10:01 Cholesterol 184 mg/dL (50-199) 08/23/17 10:01 LDL Cholesterol Direct 109 mg/dL (50-130) 08/23/17 10:01 HDL Cholesterol 32 mg/dL (40-59) L 08/23/17 10:01 Cholesterol/HDL Ratio 5.75 % 08/23/17 10:01 Urine Color Straw (Yellow) 08/22/17 Unknown Urine Turbidity Clear (Clear) 08/22/17 Unknown Urine pH 6.0 (5.0-7.0) 08/22/17 Unknown Ur Specific [place] 1.011 (1.003-1.030) 08/22/17 Unknown Urine Protein <15 mg/dl mg/dL (Negative) 08/22/17 Unknown Urine Glucose (UA) >=500 mg/dL (Negative) 08/22/17 Unknown Urine Ketones Neg mg/dL (Negative) 08/22/17 Unknown Urine Blood Neg (Negative) 08/22/17 Unknown Urine Nitrite Neg (Negative) 08/22/17 Unknown Urine Bilirubin Neg (Negative) 08/22/17 Unknown Urine Urobilinogen < 2.0 mg/dL (<2.0) 08/22/17 Unknown Ur Leukocyte Esterase Neg (Negative) 08/22/17 Unknown Urine WBC (Auto) < 1.0 /HPF (0.0-6.0) 08/22/17 Unknown Urine RBC (Auto) 1.0 /HPF (0.0-6.0) 08/22/17 Unknown Urine Bacteria (Auto) 1+ /HPF (Negative) 08/22/17 Unknown Vancomycin Trough 9.4 ug/mL (5.0-20.0) 08/24/17 13:09 - Imaging and Cardiology Imaging and Cardiology: Phalanx 5th toe -osteomylitis on MRI
[2017-08-25] MEDS: ZOSYN/NS 4.5GM/100ML 4.5 GM/100 ML VIAL IV SCH ×3 (00:37→17:18)
[2017-08-25] MEDS: TYLENOL PO PRN ×2 (00:42→20:12)
[2017-08-25] MEDS: VANCOMYCIN 1,750 MG in NACL 0.9% 500 ML 500 ML IV SCH ×2 (02:22→15:03)
[2017-08-25] MEDS: MORPHINE IV PRN ×3 (02:28→17:26)
[2017-08-25 05:21] LABS: Hematocrit 36.7 % (35.5-45.6); Hemoglobin 12.6 gm/dl (11.8-15.2); Mean Corpuscular HGB Conc 34 % (32-34); Mean Corpuscular Hemoglobin 32 pg (28-32); Mean Corpuscular Volume 94 fl (84-94); Platelet Count 352 K/mm3 (140-440); Red Blood Count 3.92 M/mm3 (3.65-5.03); Red Cell Distribution Width 13.3 % (13.2-15.2)
[2017-08-25] MEDS: NOVOLOG SUB-Q SCH ×4 (08:17→22:16)
[2017-08-25] MEDS: PLAVIX PO SCH (09:56)
[2017-08-25] MEDS: LEVEMIR SUB-Q SCH ×2 (09:56→22:17)
[2017-08-25] MEDS: LOVENOX SUB-Q SCH (09:56)
[2017-08-25] MEDS: BABY ASPIRIN PO SCH (09:56)
--- NOTE | 2017-08-25 17:45 | Consultation ---
History of Present Illness - Reason for Consult Consult date: 08/25/17 diabetic wound infection Requesting physician: DIYA ESCOBAR - History of Present Illness 57 years old male with uncontrolled diabetes, peripheral neuropathy, PVD s/p recent revascularization of the right lower extremity 4 weeks ago, admitted on 08/23/2017 due to 4 weeks history of right foot pain at the 4th and 5th toes with an ulcer between toes which has been non-healing. Patient reports he noted fifth toe discoloration 4 weeks ago. Discoloration became worse with drainage. His sugar at home was in the 300s. Patient is unfunded. Denies any recent fever, chills, nausea, vomiting, diarrhea, respiratory or urinary symptoms. He is on aspirin and Plavix. In the emergency room, initial temperature was 97.8, heart rate 97, respiration 18, blood pressure 103/70. Show white count 13.5. 13.9. Atropine 0.7. As 332. Urinalysis was negative. Arterial duplex confirms adequate perfusion to the right lower extremity (JOSHUA aprox 1), although there are some monophasic waveforms. MRI foot showed 5th proximal phalanx osteomyelitis. Microbiology: Wound cultures: 08/23 GNR Current Antimicrobials: Zosyn 08/23 Vancomycin 08/25 Previous Antimicrobials: Past History Past Medical History: diabetes, PVD Past Surgical History: Other (revasc 08/17) Social history: denies: smoking, alcohol abuse, IV drug use Family history: no significant family history Medications and Allergies Allergies Allergy/AdvReac Type Severity Reaction Status Date / Time No Known Allergies Allergy Verified 08/23/17 01:25 Home Medications Medication Instructions Recorded Confirmed Last Taken Type No Known Home Medications [No 08/25/17 08/25/17 Unknown History Reported Home Medications] Active Meds: Active Medications Acetaminophen (Tylenol) 650 mg PO Q4H PRN PRN Reason: Pain MILD(1-3)/Fever >100.5/VIVAS Last Admin: 08/25/17 00:42 Dose: 650 mg Aspirin (Baby Aspirin) 81 mg PO QDAY [facility] Last Admin: 08/25/17 09:56 Dose: 81 mg Bisacodyl (Dulcolax) 10 mg OK QDAY PRN PRN Reason: Constipation unrelieved by MOM Clopidogrel Bisulfate (Plavix) 75 mg PO DAILY [facility] Last Admin: 12/25/17 09:56 Dose: 75 mg Dextrose (D50w (25gm) Syringe) 50 ml IV PRN PRN PRN Reason: Hypoglycemia Enoxaparin Sodium (Lovenox) 40 mg SUB-Q QDAY@1000 [facility]DR[facility] Last Admin: 08/25/17 09:56 Dose: 40 mg Piperacillin Sod/Tazobactam Sod (Zosyn/Ns 4.5gm/100ml) 4.5 gm in 100 mls @ 200 mls/hr IV Q8H SANDRITA PRN Reason: Protocol Last Admin: 08/25/17 17:18 Dose: 200 mls/hr Vancomycin HCl 1,750 mg/ (Sodium Chloride) 517.5 mls @ 333.333 mls/hr IV Q12H [facility] Last Admin: 08/25/17 15:03 Dose: 333.333 mls/hr Insulin Aspart (Novolog) 0 units SUB-Q ACHS SANDRITA PRN Reason: Protocol Last Admin: 08/25/17 17:17 Dose: 4 units Insulin Detemir (Levemir) 10 units SUB-Q BID [facility] Last Admin: 08/25/17 09:56 Dose: 10 units Magnesium Hydroxide (Milk Of Magnesia) 30 ml PO Q4H PRN PRN Reason: Constipation Morphine Sulfate (Morphine) 2 mg IV Q4H PRN PRN Reason: Pain, Moderate (4-6) Last Admin: 08/25/17 17:26 Dose: 2 mg Ondansetron HCl (Zofran) 4 mg IV Q8H PRN PRN Reason: N/V unrelieved by Reglan Pravastatin Sodium (Pravachol) 40 mg PO QHS [facility] Review of Systems All systems: negative (as per HPI rest neg) Physical Examination - Physical Exam Narrative exam: General appearance: Alert in NAD, conversant Eyes: anicteric sclerae, moist conjunctivae; no lid-lag; PERRLA HENT: Atraumatic; oropharynx clear Neck: Trachea midline; supple, no thyromegaly or lymphadenopathy Lungs: CTA CV: RRR Abdomen: Soft, non-tender Extremities: right 5th toe discoloration, ulcer between 5th and 4th toe with maceration serous drainage Skin: Normal temperature, turgor and texture; no rash, ulcers or subcutaneous nodules Psych: Appropriate affect, alert and oriented to person, place and time. Neuro: alert and oriented x 3. Moving all extermities Lines: No CVL / PICC - Constitutional Vitals: Vital Signs Temp Pulse Resp BP Pulse Ox 98.1 F 88 20 126/85 96 08/25/17 15:11 08/25/17 15:11 08/25/17 15:11 08/25/17 15:11 08/25/17 15:11 Temperature -Last 24 Hours Temperature 98.1 F Temperature 98.3 F Temperature 99.0 F Temperature 99.0 F Temperature 99.0 F Temperature 99.0 F Results - Labs CBC & Chem 7: 08/25/17 05:02 08/24/17 05:17 Labs: Abnormal lab results 08/24/17 08/25/17 08/25/17 Range/Units 22:59 11:10 16:44 POC Glucose 192 H 193 H 240 H (70-105) Assessment and Plan Assessment: 1) Leukocytosis: from foot infection 2) Diabetic foot ulcer with 5th toe osteomyelitis -Arterial duplex confirms adequate perfusion to the right lower extremity ( JOSHUA aprox 1), although there are some monophasic waveforms. -MRI foot showed 5th proximal phalanx osteomyelitis. -wound cx + GNRs 3) PVD s/p recent revascularization of the right lower extremity 4 weeks ago 4) Peripheral neuropathy 5) DM - uncontrolled Plan: -obtain C-reactive protein (CRP) -stop vancomycin -follow-up wound culture -wound care -upon discharge will consider oral levaquin 750 mg q day for 6 weeks depending on culture report - patient is unfunded Thank you Dr Escobar for your consultation, will follow up with you. Manuela Connors MD Infectious Diseases Specialist [facility] M [phone] O [phone]
--- NOTE | 2017-08-25 18:38 | Progress Note ---
Assessment and Plan Assessment and plan: 57 yo diabetic, with diabetic neuropathy s/p recent revascularization of his RLE for rest pain. He was admitted for a worsening right foot infection. Cellulitis with abscess collection of the right foot - Vascular surgery consulted and evaluated, blood flow is good - Dr. Jensen consulted for debridement - Patient is on IV vancomycin and Zosyn - ID consult Osteomylitis -ID consult -Continue IV abx -Wound care consult Diabetes mellitus with hyperglycemia - Patient is on SS insulin and long-acting insulin - Accu-Chek, adjust as needed Severe PVD -Continue plavix and aspirin. Start Statin -s/p RLE Revascularization -Vascular following. DVT prophylaxis - On lovenox Disposition - Continue inpatient care. History Interval history: Patient seen and examined, pain in the right lower ext Improved, awaiting wound care, denies any chest pain, nausea, vomiting and diarrhea. Hospitalist Physical - Physical exam Narrative exam: General appearance: Present: no acute distress - EENT Eyes: Present: PERRL, EOM intact ENT: hearing intact - Neck Neck: Present: supple, normal ROM - Respiratory Respiratory effort: normal Respiratory: bilateral: CTA - Cardiovascular Rhythm: regular Heart Sounds: Present: S1 & S2. Absent: systolic murmur, diastolic murmur - Extremities Extremities: no ischemia, pulses intact, Full ROM Extremity abnormal: edema (1+ edema right lower ext), erythema (RLE) Peripheral Pulses: abnormal (diminshed right edema (mild RLE), erythema (mild RLE), black (small eschar on 5th and 1st digit), pulses diminished other ( purulence between 4-5th digit web space)) - Abdominal General gastrointestinal: soft, non-tender, non-distended, normal bowel sounds - Integumentary Integumentary: Present: warm (right lower ext), erythema - Psychiatric Psychiatric: appropriate mood/affect, cooperative - Neurologic Neurologic: CNII-XII intact - Constitutional Vitals: Temp Pulse Resp BP Pulse Ox 98.1 F 88 20 126/85 96 08/25/17 15:11 08/25/17 15:11 08/25/17 15:11 08/25/17 15:11 08/25/17 15:11 General appearance: Present: no acute distress Results - Labs CBC & Chem 7: 08/25/17 05:02 08/24/17 05:17 Labs: Laboratory Last Values WBC 10.9 K/mm3 (4.5-11.0) 08/25/17 05:02 RBC 3.92 M/mm3 (3.65-5.03) 08/25/17 05:02 Hgb 12.6 gm/dl (11.8-15.2) 08/25/17 05:02 Hct 36.7 % (35.5-45.6) 08/25/17 05:02 MCV 94 fl (84-94) 08/25/17 05:02 MCH 32 pg (28-32) 08/25/17 05:02 MCHC 34 % (32-34) 08/25/17 05:02 RDW 13.3 % (13.2-15.2) 08/25/17 05:02 Plt Count 352 K/mm3 (140-440) 08/25/17 05:02 Lymph % (Auto) 23.5 % (13.4-35.0) 08/22/17 15:16 [place] % (Auto) 5.7 % (0.0-7.3) 08/22/17 15:16 Eos % (Auto) Coal Handler 08/24/17 05:17 Baso % (Auto) 1.0 % (0.0-1.8) 08/22/17 15:16 Lymph # 3.2 K/mm3 (1.2-5.4) 08/22/17 15:16 [place] # 0.8 K/mm3 (0.0-0.8) 08/22/17 15:16 Eos # 1.0 K/mm3 (0.0-0.4) H 08/22/17 15:16 Baso # 0.1 K/mm3 (0.0-0.1) 08/22/17 15:16 Add Manual Diff Complete 08/24/17 05:17 Total Counted 100 08/24/17 05:17 Seg Neutrophils % 62.2 % (40.0-70.0) 08/22/17 15:16 Seg Neuts % (Manual) 53.0 % (40.0-70.0) 08/24/17 05:17 Band Neutrophils % 0 % 08/24/17 05:17 Lymphocytes % (Manual) 21.0 % (13.4-35.0) 08/24/17 05:17 Reactive Lymphs % (Man) 0 % 08/24/17 05:17 Monocytes % (Manual) 8.0 % (0.0-7.3) H 08/24/17 05:17 Eosinophils % (Manual) 18.0 % (0.0-4.3) H 08/24/17 05:17 Basophils % (Manual) 0 % (0.0-1.8) 08/24/17 05:17 Metamyelocytes % 0 % 08/24/17 05:17 Myelocytes % 0 % 08/24/17 05:17 Promyelocytes % 0 % 08/24/17 05:17 Blast Cells % 0 % 08/24/17 05:17 Nucleated RBC % Not Reportable 08/24/17 05:17 Seg Neutrophils # 8.4 K/mm3 (1.8-7.7) H 08/22/17 15:16 Seg Neutrophils # Man 7.4 K/mm3 (1.8-7.7) 08/24/17 05:17 Band Neutrophils # 0.0 K/mm3 08/24/17 05:17 Lymphocytes # (Manual) 2.9 K/mm3 (1.2-5.4) 08/24/17 05:17 Abs React Lymphs (Man) 0.0 K/mm3 08/24/17 05:17 Monocytes # (Manual) 1.1 K/mm3 (0.0-0.8) H 08/24/17 05:17 Eosinophils # (Manual) 2.5 K/mm3 (0.0-0.4) H 08/24/17 05:17 Basophils # (Manual) 0.0 K/mm3 (0.0-0.1) 08/24/17 05:17 Metamyelocytes # 0.0 K/mm3 08/24/17 05:17 Myelocytes # 0.0 K/mm3 08/24/17 05:17 Promyelocytes # 0.0 K/mm3 08/24/17 05:17 Blast Cells # 0.0 K/mm3 08/24/17 05:17 WBC Morphology Not Reportable 08/24/17 05:17 Hypersegmented Neuts Not Reportable 08/24/17 05:17 Hyposegmented Neuts Not Reportable 08/24/17 05:17 Hypogranular Neuts Not Reportable 08/24/17 05:17 Smudge Cells Not Reportable 08/24/17 05:17 Toxic Granulation Not Reportable 08/24/17 05:17 Toxic Vacuolation Not Reportable 08/24/17 05:17 Dohle Bodies Not Reportable 08/24/17 05:17 Pelger-Huet Anomaly Not Reportable 08/24/17 05:17 Axel Rods Not Reportable 08/24/17 05:17 Platelet Estimate Appears normal 08/24/17 05:17 Clumped Platelets Not Reportable 08/24/17 05:17 Plt Clumps, EDTA Not Reportable 08/24/17 05:17 Large Platelets Not Reportable 08/24/17 05:17 Giant Platelets Not Reportable 08/24/17 05:17 Platelet Satelliting Not Reportable 08/24/17 05:17 Plt Morphology Comment Not Reportable 08/24/17 05:17 RBC Morphology Not Reportable 08/24/17 05:17 Dimorphic RBCs Not Reportable 08/24/17 05:17 Polychromasia Not Reportable 08/24/17 05:17 Hypochromasia Not Reportable 08/24/17 05:17 Poikilocytosis Not Reportable 08/24/17 05:17 Anisocytosis 1+ 08/24/17 05:17 Microcytosis Not Reportable 08/24/17 05:17 Macrocytosis Not Reportable 08/24/17 05:17 Spherocytes Not Reportable 08/24/17 05:17 Pappenheimer Bodies Not Reportable 08/24/17 05:17 Sickle Cells Not Reportable 08/24/17 05:17 Target Cells Not Reportable 08/24/17 05:17 Tear Drop Cells Not Reportable 08/24/17 05:17 Ovalocytes Not Reportable 08/24/17 05:17 Helmet Cells Not Reportable 08/24/17 05:17 Se[place] Bodies Not Reportable 08/24/17 05:17 [place] Rings Not Reportable 08/24/17 05:17 [place] Cells Rare 08/24/17 05:17 Bite Cells Not Reportable 08/24/17 05:17 Crenated Cell Not Reportable 08/24/17 05:17 Elliptocytes Not Reportable 08/24/17 05:17 Acanthocytes (Spur) Not Reportable 08/24/17 05:17 Rouleaux Not Reportable 08/24/17 05:17 Hemoglobin C Crystals Not Reportable 08/24/17 05:17 Schistocytes Not Reportable 08/24/17 05:17 Malaria parasites Not Reportable 08/24/17 05:17 Caleb Bodies Not Reportable 08/24/17 05:17 Hem Pathologist Commnt No 08/24/17 05:17 Sodium 138 mmol/L (137-145) 08/24/17 05:17 Potassium 4.2 mmol/L (3.6-5.0) 08/24/17 05:17 Chloride 98.4 mmol/L (98-107) 08/24/17 05:17 Carbon Dioxide 26 mmol/L (22-30) 08/24/17 05:17 Anion Gap 18 mmol/L 08/24/17 05:17 BUN 19 mg/dL (9-20) 08/24/17 05:17 Creatinine 0.8 mg/dL (0.8-1.5) 08/24/17 05:17 Estimated GFR > 60 ml/min 08/24/17 05:17 BUN/Creatinine Ratio 24 % 08/24/17 05:17 Glucose 142 mg/dL (75-100) H 08/24/17 05:17 POC Glucose 240 (70-105) H 08/25/17 16:44 Hemoglobin A1c 12.3 % (4-6) H 08/23/17 10:01 Lactic Acid 1.80 mmol/L (0.7-2.0) 08/22/17 18:03 Calcium 8.9 mg/dL (8.4-10.2) 08/24/17 05:17 Total Bilirubin 0.20 mg/dL (0.1-1.2) 08/22/17 15:16 AST 11 units/L (5-40) 08/22/17 15:16 ALT 13 units/L (7-56) 08/22/17 15:16 Alkaline Phosphatase 144 units/L (35-129) H 08/22/17 15:16 Total Protein 7.1 g/dL (6.3-8.2) 08/22/17 15:16 Albumin 3.8 g/dL (3.9-5) L 08/22/17 15:16 Albumin/Globulin Ratio 1.2 % 08/22/17 15:16 Triglycerides 215 mg/dL (2-149) H 08/23/17 10:01 Cholesterol 184 mg/dL (50-199) 08/23/17 10:01 LDL Cholesterol Direct 109 mg/dL (50-130) 08/23/17 10:01 HDL Cholesterol 32 mg/dL (40-59) L 08/23/17 10:01 Cholesterol/HDL Ratio 5.75 % 08/23/17 10:01 Urine Color Straw (Yellow) 08/22/17 Unknown Urine Turbidity Clear (Clear) 08/22/17 Unknown Urine pH 6.0 (5.0-7.0) 08/22/17 Unknown Ur Specific [place] 1.011 (1.003-1.030) 08/22/17 Unknown Urine Protein <15 mg/dl mg/dL (Negative) 08/22/17 Unknown Urine Glucose (UA) >=500 mg/dL (Negative) 08/22/17 Unknown Urine Ketones Neg mg/dL (Negative) 08/22/17 Unknown Urine Blood Neg (Negative) 08/22/17 Unknown Urine Nitrite Neg (Negative) 08/22/17 Unknown Urine Bilirubin Neg (Negative) 08/22/17 Unknown Urine Urobilinogen < 2.0 mg/dL (<2.0) 08/22/17 Unknown Ur Leukocyte Esterase Neg (Negative) 08/22/17 Unknown Urine WBC (Auto) < 1.0 /HPF (0.0-6.0) 08/22/17 Unknown Urine RBC (Auto) 1.0 /HPF (0.0-6.0) 08/22/17 Unknown Urine Bacteria (Auto) 1+ /HPF (Negative) 08/22/17 Unknown Vancomycin Trough 9.4 ug/mL (5.0-20.0) 08/24/17 13:09
[2017-08-25] MEDS: PRAVACHOL PO SCH (22:17)
[2017-08-26] MEDS: ZOSYN/NS 4.5GM/100ML 4.5 GM/100 ML VIAL IV SCH ×3 (00:48→17:05)
[2017-08-26] MEDS: MORPHINE IV PRN ×2 (00:51→21:18)
[2017-08-26] MEDS: TYLENOL PO PRN ×2 (06:30→11:57)
[2017-08-26] MEDS: PLAVIX PO SCH (09:00)
[2017-08-26] MEDS: BABY ASPIRIN PO SCH (09:00)
[2017-08-26] MEDS: LOVENOX SUB-Q SCH (09:00)
[2017-08-26] MEDS: LEVEMIR SUB-Q SCH ×2 (09:01→21:19)
[2017-08-26] MEDS: NOVOLOG SUB-Q SCH ×4 (09:06→21:42)
--- NOTE | 2017-08-26 11:39 | Progress Note ---
Assessment and Plan Assessment: 1) Leukocytosis: from foot infection 2) Diabetic foot ulcer with 5th toe osteomyelitis -Arterial duplex confirms adequate perfusion to the right lower extremity ( JOSHUA aprox 1), although there are some monophasic waveforms. -MRI foot showed 5th proximal phalanx osteomyelitis. -wound cx + E coli resistant to levaquin -CRP=2.5 3) PVD s/p recent revascularization of the right lower extremity 4 weeks ago 4) Peripheral neuropathy 5) DM - uncontrolled Plan: -wound care -stop zosyn -start ceftraxone -picc line -upon discharge will do ceftriaxone 2 g IV q day for 6 weeks from 08/23/17 until 10/03/[address] Escobar for your consultation, will follow up with you. Manuela Connors MD Infectious Diseases Specialist [facility] [place] [facility] ([facility]) M [phone] O [phone] Subjective Date of service: 08/26/17 Principal diagnosis: leukocytosis Interval history: Feels ok, c/o burning sensation in he foot. No fever. Microbiology: Wound cultures: 08/23 E coli resistant to levaquin Current Antimicrobials: Zosyn 08/23 Previous Antimicrobials: Vancomycin 08/25 Objective - Exam Narrative Exam: General appearance: Alert in NAD, conversant Eyes: anicteric sclerae, moist conjunctivae; no lid-lag; PERRLA HENT: Atraumatic; oropharynx clear Neck: Trachea midline; supple, no thyromegaly or lymphadenopathy Lungs: CTA CV: RRR Abdomen: Soft, non-tender Extremities: right 5th toe discoloration, ulcer between 5th and 4th toe with maceration serous drainage Skin: Normal temperature, turgor and texture; no rash, ulcers or subcutaneous nodules Psych: Appropriate affect, alert and oriented to person, place and time. Neuro: alert and oriented x 3. Moving all extermities Lines: No CVL / PICC - Constitutional Vitals: Vital Signs Temp Pulse Resp BP Pulse Ox 98.7 F 78 18 125/78 96 08/26/17 07:10 08/26/17 07:10 08/26/17 07:10 08/26/17 07:10 08/26/17 07:10 Temperature -Last 24 Hours Temperature 98.7 F Temperature 98.8 F Temperature 98.1 F - Labs CBC & Chem 7: 08/25/17 05:02 08/24/17 05:17 Labs: Abnormal lab results 08/25/17 08/25/17 08/25/17 Range/Units 16:44 19:19 21:44 POC Glucose 240 H 209 H (70-105) C-Reactive Protein 2.50 H (0.00-1.30) mg/dL 08/26/17 Range/Units 05:45 POC Glucose 178 H (70-105) C-Reactive Protein (0.00-1.30) mg/dL
--- NOTE | 2017-08-26 13:05 | Progress Note ---
Assessment and Plan Assessment and plan: 57 yo diabetic, with diabetic neuropathy s/p recent revascularization of his RLE for rest pain. He was admitted for a worsening right foot infection. Cellulitis with abscess collection of the right foot Diabetic foot ulcer - Vascular surgery consulted and evaluated, blood flow is good Although there are some limitations - Dr. Jensen consulted for debridement - ID input noted, changed to ceftriaxone 2 g IV q day for 6 weeks from 08/23/17 until 10/03/17 -will place PICC line once abx approved - Extensive counselling provided Osteomylitis -ID consult -Continue IV abx -Wound care consult Diabetes mellitus with hyperglycemia - Patient is on SS insulin and long-acting insulin - Accu-Chek, adjust as needed Severe PVD -Continue plavix and aspirin. Start Statin -s/p RLE Revascularization -Vascular following. DVT prophylaxis - On lovenox Disposition - Continue inpatient care. History Interval history: Patient seen and examined, pain in the right lower ext Improved, awaiting wound care, denies any chest pain, nausea, vomiting and diarrhea. Hospitalist Physical - Physical exam Narrative exam: General appearance: Present: no acute distress - EENT Eyes: Present: PERRL, EOM intact ENT: hearing intact - Neck Neck: Present: supple, normal ROM - Respiratory Respiratory effort: normal Respiratory: bilateral: CTA - Cardiovascular Rhythm: regular Heart Sounds: Present: S1 & S2. Absent: systolic murmur, diastolic murmur - Extremities Extremities: no ischemia, pulses intact, Full ROM Extremity abnormal: edema (1+ edema right lower ext), erythema (RLE) Peripheral Pulses: abnormal (diminshed right edema (mild RLE), erythema (mild RLE), black (small eschar on 5th and 1st digit), pulses diminished other ( purulence between 4-5th digit web space)) Dressing in place - Abdominal General gastrointestinal: soft, non-tender, non-distended, normal bowel sounds - Integumentary Integumentary: Present: warm (right lower ext), erythema - Psychiatric Psychiatric: appropriate mood/affect, cooperative - Neurologic Neurologic: CNII-XII intact - Constitutional Vitals: Temp Pulse Resp BP Pulse Ox 98.7 F 78 18 125/78 96 08/26/17 07:10 08/26/17 07:10 08/26/17 07:10 08/26/17 07:10 08/26/17 07:10 General appearance: Present: no acute distress Results - Labs CBC & Chem 7: 08/25/17 05:02 08/24/17 05:17 Labs: Laboratory Last Values WBC 10.9 K/mm3 (4.5-11.0) 08/25/17 05:02 RBC 3.92 M/mm3 (3.65-5.03) 08/25/17 05:02 Hgb 12.6 gm/dl (11.8-15.2) 08/25/17 05:02 Hct 36.7 % (35.5-45.6) 08/25/17 05:02 MCV 94 fl (84-94) 08/25/17 05:02 MCH 32 pg (28-32) 08/25/17 05:02 MCHC 34 % (32-34) 08/25/17 05:02 RDW 13.3 % (13.2-15.2) 08/25/17 05:02 Plt Count 352 K/mm3 (140-440) 08/25/17 05:02 Lymph % (Auto) 23.5 % (13.4-35.0) 08/22/17 15:16 [place] % (Auto) 5.7 % (0.0-7.3) 08/22/17 15:16 Eos % (Auto) Floor Finisher Helper 08/24/17 05:17 Baso % (Auto) 1.0 % (0.0-1.8) 08/22/17 15:16 Lymph # 3.2 K/mm3 (1.2-5.4) 08/22/17 15:16 [place] # 0.8 K/mm3 (0.0-0.8) 08/22/17 15:16 Eos # 1.0 K/mm3 (0.0-0.4) H 08/22/17 15:16 Baso # 0.1 K/mm3 (0.0-0.1) 08/22/17 15:16 Add Manual Diff Complete 08/24/17 05:17 Total Counted 100 08/24/17 05:17 Seg Neutrophils % 62.2 % (40.0-70.0) 08/22/17 15:16 Seg Neuts % (Manual) 53.0 % (40.0-70.0) 08/24/17 05:17 Band Neutrophils % 0 % 08/24/17 05:17 Lymphocytes % (Manual) 21.0 % (13.4-35.0) 08/24/17 05:17 Reactive Lymphs % (Man) 0 % 08/24/17 05:17 Monocytes % (Manual) 8.0 % (0.0-7.3) H 08/24/17 05:17 Eosinophils % (Manual) 18.0 % (0.0-4.3) H 08/24/17 05:17 Basophils % (Manual) 0 % (0.0-1.8) 08/24/17 05:17 Metamyelocytes % 0 % 08/24/17 05:17 Myelocytes % 0 % 08/24/17 05:17 Promyelocytes % 0 % 08/24/17 05:17 Blast Cells % 0 % 08/24/17 05:17 Nucleated RBC % Not Reportable 08/24/17 05:17 Seg Neutrophils # 8.4 K/mm3 (1.8-7.7) H 08/22/17 15:16 Seg Neutrophils # Man 7.4 K/mm3 (1.8-7.7) 08/24/17 05:17 Band Neutrophils # 0.0 K/mm3 08/24/17 05:17 Lymphocytes # (Manual) 2.9 K/mm3 (1.2-5.4) 08/24/17 05:17 Abs React Lymphs (Man) 0.0 K/mm3 08/24/17 05:17 Monocytes # (Manual) 1.1 K/mm3 (0.0-0.8) H 08/24/17 05:17 Eosinophils # (Manual) 2.5 K/mm3 (0.0-0.4) H 08/24/17 05:17 Basophils # (Manual) 0.0 K/mm3 (0.0-0.1) 08/24/17 05:17 Metamyelocytes # 0.0 K/mm3 08/24/17 05:17 Myelocytes # 0.0 K/mm3 08/24/17 05:17 Promyelocytes # 0.0 K/mm3 08/24/17 05:17 Blast Cells # 0.0 K/mm3 08/24/17 05:17 WBC Morphology Not Reportable 08/24/17 05:17 Hypersegmented Neuts Not Reportable 08/24/17 05:17 Hyposegmented Neuts Not Reportable 08/24/17 05:17 Hypogranular Neuts Not Reportable 08/24/17 05:17 Smudge Cells Not Reportable 08/24/17 05:17 Toxic Granulation Not Reportable 08/24/17 05:17 Toxic Vacuolation Not Reportable 08/24/17 05:17 Dohle Bodies Not Reportable 08/24/17 05:17 Pelger-Huet Anomaly Not Reportable 08/24/17 05:17 Axel Rods Not Reportable 08/24/17 05:17 Platelet Estimate Appears normal 08/24/17 05:17 Clumped Platelets Not Reportable 08/24/17 05:17 Plt Clumps, EDTA Not Reportable 08/24/17 05:17 Large Platelets Not Reportable 08/24/17 05:17 Giant Platelets Not Reportable 08/24/17 05:17 Platelet Satelliting Not Reportable 08/24/17 05:17 Plt Morphology Comment Not Reportable 08/24/17 05:17 RBC Morphology Not Reportable 08/24/17 05:17 Dimorphic RBCs Not Reportable 08/24/17 05:17 Polychromasia Not Reportable 08/24/17 05:17 Hypochromasia Not Reportable 08/24/17 05:17 Poikilocytosis Not Reportable 08/24/17 05:17 Anisocytosis 1+ 08/24/17 05:17 Microcytosis Not Reportable 08/24/17 05:17 Macrocytosis Not Reportable 08/24/17 05:17 Spherocytes Not Reportable 08/24/17 05:17 Pappenheimer Bodies Not Reportable 08/24/17 05:17 Sickle Cells Not Reportable 08/24/17 05:17 Target Cells Not Reportable 08/24/17 05:17 Tear Drop Cells Not Reportable 08/24/17 05:17 Ovalocytes Not Reportable 08/24/17 05:17 Helmet Cells Not Reportable 08/24/17 05:17 [place] Bodies Not Reportable 08/24/17 05:17 [place] Rings Not Reportable 08/24/17 05:17 [place] Cells Rare 08/24/17 05:17 Bite Cells Not Reportable 08/24/17 05:17 Crenated Cell Not Reportable 08/24/17 05:17 Elliptocytes Not Reportable 08/24/17 05:17 Acanthocytes (Spur) Not Reportable 08/24/17 05:17 Rouleaux Not Reportable 08/24/17 05:17 Hemoglobin C Crystals Not Reportable 08/24/17 05:17 Schistocytes Not Reportable 08/24/17 05:17 Malaria parasites Not Reportable 08/24/17 05:17 Caleb Bodies Not Reportable 08/24/17 05:17 Hem Pathologist Commnt No 08/24/17 05:17 Sodium 138 mmol/L (137-145) 08/24/17 05:17 Potassium 4.2 mmol/L (3.6-5.0) 08/24/17 05:17 Chloride 98.4 mmol/L (98-107) 08/24/17 05:17 Carbon Dioxide 26 mmol/L (22-30) 08/24/17 05:17 Anion Gap 18 mmol/L 08/24/17 05:17 BUN 19 mg/dL (9-20) 08/24/17 05:17 Creatinine 0.8 mg/dL (0.8-1.5) 08/24/17 05:17 Estimated GFR > 60 ml/min 08/24/17 05:17 BUN/Creatinine Ratio 24 % 08/24/17 05:17 Glucose 142 mg/dL (75-100) H 08/24/17 05:17 POC Glucose 218 (70-105) H 08/26/17 11:42 Hemoglobin A1c 12.3 % (4-6) H 08/23/17 10:01 Lactic Acid 1.80 mmol/L (0.7-2.0) 08/22/17 18:03 Calcium 8.9 mg/dL (8.4-10.2) 08/24/17 05:17 Total Bilirubin 0.20 mg/dL (0.1-1.2) 08/22/17 15:16 AST 11 units/L (5-40) 08/22/17 15:16 ALT 13 units/L (7-56) 08/22/17 15:16 Alkaline Phosphatase 144 units/L (35-129) H 08/22/17 15:16 C-Reactive Protein 2.50 mg/dL (0.00-1.30) H 08/25/17 19:19 Total Protein 7.1 g/dL (6.3-8.2) 08/22/17 15:16 Albumin 3.8 g/dL (3.9-5) L 08/22/17 15:16 Albumin/Globulin Ratio 1.2 % 08/22/17 15:16 Triglycerides 215 mg/dL (2-149) H 08/23/17 10:01 Cholesterol 184 mg/dL (50-199) 08/23/17 10:01 LDL Cholesterol Direct 109 mg/dL (50-130) 08/23/17 10:01 HDL Cholesterol 32 mg/dL (40-59) L 08/23/17 10:01 Cholesterol/HDL Ratio 5.75 % 08/23/17 10:01 Urine Color Straw (Yellow) 08/22/17 Unknown Urine Turbidity Clear (Clear) 08/22/17 Unknown Urine pH 6.0 (5.0-7.0) 08/22/17 Unknown Ur Specific [place] 1.011 (1.003-1.030) 08/22/17 Unknown Urine Protein <15 mg/dl mg/dL (Negative) 08/22/17 Unknown Urine Glucose (UA) >=500 mg/dL (Negative) 08/22/17 Unknown Urine Ketones Neg mg/dL (Negative) 08/22/17 Unknown Urine Blood Neg (Negative) 08/22/17 Unknown Urine Nitrite Neg (Negative) 08/22/17 Unknown Urine Bilirubin Neg (Negative) 08/22/17 Unknown Urine Urobilinogen < 2.0 mg/dL (<2.0) 08/22/17 Unknown Ur Leukocyte Esterase Neg (Negative) 08/22/17 Unknown Urine WBC (Auto) < 1.0 /HPF (0.0-6.0) 08/22/17 Unknown Urine RBC (Auto) 1.0 /HPF (0.0-6.0) 08/22/17 Unknown Urine Bacteria (Auto) 1+ /HPF (Negative) 08/22/17 Unknown Vancomycin Trough 9.4 ug/mL (5.0-20.0) 08/24/17 13:09
--- NOTE | 2017-08-26 15:52 | XRay Report ---
PORTABLE CHEST INDICATION: Right upper arm PICC placement. COMPARISON: None similar. FINDINGS: Portable, frontal chest radiograph, 2:42 PM, 08/26/2017 demonstrates a right upper extremity PICC extending into the neck with its tip beyond the superior radiographic margin. Normal cardiomediastinal silhouette. Clear lungs. Old healed right mid clavicular deformity. CONCLUSION: 1. Malpositioned right upper extremity PICC that should be retracted/removed. 2. Few other findings, as above. I phoned the above results to the PICC nurse, 3:40 PM, 08/26/2017. Thank you for the opportunity to participate in this patient's care.
--- NOTE | 2017-08-26 17:11 | XRay Report ---
FINAL REPORT EXAM: XR CHEST 1V AP HISTORY: picc placement to right upper arm TECHNIQUE: upright single view chest PRIORS: None. FINDINGS: Cardiac and mediastinal contours are unremarkable. No focal pulmonary infiltrate is identified. No pleural fluid collection seen. Pulmonary vasculature is unremarkable. There is right-sided PICC line present catheter tip at the SVC in satisfactory position. No evidence for pneumothorax. IMPRESSION: Right PICC line in satisfactory position No pneumothorax or acute abnormality seen in the chest
[2017-08-26] MEDS: PRAVACHOL PO SCH (21:19)
[2017-08-27] MEDS: ZOSYN/NS 4.5GM/100ML 4.5 GM/100 ML VIAL IV SCH ×4 (01:00→23:33)
[2017-08-27] MEDS: TYLENOL PO PRN (01:33)
[2017-08-27] MEDS: MORPHINE IV PRN ×3 (04:24→21:37)
[2017-08-27] MEDS: NOVOLOG SUB-Q SCH ×4 (08:32→21:38)
[2017-08-27] MEDS: LOVENOX SUB-Q SCH (09:20)
[2017-08-27] MEDS: BABY ASPIRIN PO SCH (09:20)
[2017-08-27] MEDS: PLAVIX PO SCH (09:20)
[2017-08-27] MEDS: LEVEMIR SUB-Q SCH ×2 (11:02→21:38)
--- NOTE | 2017-08-27 11:33 | Progress Note ---
Assessment and Plan Assessment: 1) Leukocytosis: from foot infection 2) Diabetic foot ulcer with 5th toe osteomyelitis -Arterial duplex confirms adequate perfusion to the right lower extremity ( JOSHUA aprox 1), although there are some monophasic waveforms. -MRI foot showed 5th proximal phalanx osteomyelitis. -wound cx + E coli resistant to levaquin -CRP=2.5 3) PVD s/p recent revascularization of the right lower extremity 4 weeks ago 4) Peripheral neuropathy 5) DM - uncontrolled Plan: -vascular / surgical eval due to persistent right foot severe pain -continue ceftriaxone -upon discharge will do ceftriaxone 2 g IV q day for 6 weeks from 08/23/17 until 10/03/[address] Escobar for your consultation, will follow up with you. Manuela Connors MD Infectious Diseases Specialist [facility] ([facility]) M [phone] O [phone] Subjective Date of service: 08/27/17 Principal diagnosis: leukocytosis Interval history: Feels ok, c/o right foot pain. No fever. Microbiology: Wound cultures: 08/23 E coli resistant to levaquin Current Antimicrobials: Zosyn 08/23 Previous Antimicrobials: Vancomycin 08/25 Objective - Exam Narrative Exam: General appearance: Alert in NAD, conversant Eyes: anicteric sclerae, moist conjunctivae; no lid-lag; PERRLA HENT: Atraumatic; oropharynx clear Neck: Trachea midline; supple, no thyromegaly or lymphadenopathy Lungs: CTA CV: RRR Abdomen: Soft, non-tender Extremities: right foot covered with dressings Skin: Normal temperature, turgor and texture; no rash, ulcers or subcutaneous nodules Psych: Appropriate affect, alert and oriented to person, place and time. Neuro: alert and oriented x 3. Moving all extermities Lines: No CVL / PICC - Constitutional Vitals: Vital Signs Temp Pulse Resp BP Pulse Ox 98.3 F 74 16 132/71 97 08/27/17 07:22 08/27/17 07:22 08/27/17 07:22 08/27/17 07:22 08/27/17 07:22 Temperature -Last 24 Hours Temperature 98.3 F Temperature 98.7 F Temperature 98.5 F - Labs CBC & Chem 7: 08/25/17 05:02 12/24/17 05:17 Labs: Abnormal lab results 08/26/17 08/26/17 08/26/17 Range/Units 11:42 16:48 21:25 POC Glucose 218 H 187 H 250 H (70-105)
[2017-08-27] MEDS: PERCOCET 5/325 PO PRN (12:52)
--- NOTE | 2017-08-27 14:55 | Progress Note ---
Assessment and Plan Assessment and plan: 57 yo diabetic, with diabetic neuropathy s/p recent revascularization of his RLE for rest pain. He was admitted for a worsening right foot infection. Cellulitis with abscess collection of the right foot * Abx and pain management * Start on percocet for better pain control * Discussed with wang Lentz will follow at the wound care center * Eval by PT requested to see if any DME needs prior to discharge Diabetic foot ulcer - Vascular surgery consulted and evaluated, blood flow is good Although there are some limitations - Dr. Jensen consulted for debridement - ID input noted, changed to ceftriaxone 2 g IV q day for 6 weeks from 08/23/17 until 10/03/17 -PICC line placed - Extensive counselling provided Osteomylitis -ID consult -Continue IV abx -Wound care consult Diabetes mellitus with hyperglycemia - Patient is on SS insulin and long-acting insulin - Accu-Chek, adjust as needed Severe PVD -Continue plavix and aspirin. Start Statin -s/p RLE Revascularization -Vascular following. DVT prophylaxis - On lovenox Disposition - Continue inpatient care. History Interval history: Patient seen and examined, Per patient, pain is worse today. No fever, nausea, vomiting, diarrhea Hospitalist Physical - Physical exam Narrative exam: General appearance: Present: no acute distress - EENT Eyes: Present: PERRL, EOM intact ENT: hearing intact - Neck Neck: Present: supple, normal ROM - Respiratory Respiratory effort: normal Respiratory: bilateral: CTA - Cardiovascular Rhythm: regular Heart Sounds: Present: S1 & S2. Absent: systolic murmur, diastolic murmur - Extremities Extremities: no ischemia, pulses intact, Full ROM Extremity abnormal: No overt drainage, glass cleaning machine tender to touch edema (1+ edema right lower ext), erythema (RLE) Peripheral Pulses: abnormal (diminshed right edema (mild RLE), erythema (mild RLE), black (small eschar on 5th and 1st digit), pulses diminished other ( purulence between 4-5th digit web space)) Dressing in place - Abdominal General gastrointestinal: soft, non-tender, non-distended, normal bowel sounds - Integumentary Integumentary: Present: warm (right lower ext), erythema - Psychiatric Psychiatric: appropriate mood/affect, cooperative - Neurologic Neurologic: CNII-XII intact - Constitutional Vitals: Temp Pulse Resp BP Pulse Ox 98.3 F 74 16 132/71 97 08/27/17 07:22 08/27/17 07:22 08/27/17 07:22 08/27/17 07:22 08/27/17 07:22 General appearance: Present: no acute distress Results - Labs CBC & Chem 7: 08/25/17 05:02 08/24/17 05:17 Labs: Laboratory Last Values WBC 10.9 K/mm3 (4.5-11.0) 08/25/17 05:02 RBC 3.92 M/mm3 (3.65-5.03) 08/25/17 05:02 Hgb 12.6 gm/dl (11.8-15.2) 08/25/17 05:02 Hct 36.7 % (35.5-45.6) 08/25/17 05:02 MCV 94 fl (84-94) 08/25/17 05:02 MCH 32 pg (28-32) 08/25/17 05:02 MCHC 34 % (32-34) 08/25/17 05:02 RDW 13.3 % (13.2-15.2) 08/25/17 05:02 Plt Count 352 K/mm3 (140-440) 08/25/17 05:02 Lymph % (Auto) 23.5 % (13.4-35.0) 08/22/17 15:16 [place] % (Auto) 5.7 % (0.0-7.3) 08/22/17 15:16 Eos % (Auto) Composite Science Teacher 08/24/17 05:17 Baso % (Auto) 1.0 % (0.0-1.8) 08/22/17 15:16 Lymph # 3.2 K/mm3 (1.2-5.4) 08/22/17 15:16 [place] # 0.8 K/mm3 (0.0-0.8) 08/22/17 15:16 Eos # 1.0 K/mm3 (0.0-0.4) H 08/22/17 15:16 Baso # 0.1 K/mm3 (0.0-0.1) 08/22/17 15:16 Add Manual Diff Complete 08/24/17 05:17 Total Counted 100 08/24/17 05:17 Seg Neutrophils % 62.2 % (40.0-70.0) 08/22/17 15:16 Seg Neuts % (Manual) 53.0 % (40.0-70.0) 08/24/17 05:17 Band Neutrophils % 0 % 08/24/17 05:17 Lymphocytes % (Manual) 21.0 % (13.4-35.0) 08/24/17 05:17 Reactive Lymphs % (Man) 0 % 08/24/17 05:17 Monocytes % (Manual) 8.0 % (0.0-7.3) H 08/24/17 05:17 Eosinophils % (Manual) 18.0 % (0.0-4.3) H 08/24/17 05:17 Basophils % (Manual) 0 % (0.0-1.8) 08/24/17 05:17 Metamyelocytes % 0 % 08/24/17 05:17 Myelocytes % 0 % 08/24/17 05:17 Promyelocytes % 0 % 08/24/17 05:17 Blast Cells % 0 % 08/24/17 05:17 Nucleated RBC % Not Reportable 08/24/17 05:17 Seg Neutrophils # 8.4 K/mm3 (1.8-7.7) H 08/22/17 15:16 Seg Neutrophils # Man 7.4 K/mm3 (1.8-7.7) 08/24/17 05:17 Band Neutrophils # 0.0 K/mm3 08/24/17 05:17 Lymphocytes # (Manual) 2.9 K/mm3 (1.2-5.4) 08/24/17 05:17 Abs React Lymphs (Man) 0.0 K/mm3 08/24/17 05:17 Monocytes # (Manual) 1.1 K/mm3 (0.0-0.8) H 08/24/17 05:17 Eosinophils # (Manual) 2.5 K/mm3 (0.0-0.4) H 08/24/17 05:17 Basophils # (Manual) 0.0 K/mm3 (0.0-0.1) 08/24/17 05:17 Metamyelocytes # 0.0 K/mm3 08/24/17 05:17 Myelocytes # 0.0 K/mm3 08/24/17 05:17 Promyelocytes # 0.0 K/mm3 08/24/17 05:17 Blast Cells # 0.0 K/mm3 08/24/17 05:17 WBC Morphology Not Reportable 08/24/17 05:17 Hypersegmented Neuts Not Reportable 08/24/17 05:17 Hyposegmented Neuts Not Reportable 08/24/17 05:17 Hypogranular Neuts Not Reportable 08/24/17 05:17 Smudge Cells Not Reportable 08/24/17 05:17 Toxic Granulation Not Reportable 08/24/17 05:17 Toxic Vacuolation Not Reportable 08/24/17 05:17 Dohle Bodies Not Reportable 08/24/17 05:17 Pelger-Huet Anomaly Not Reportable 08/24/17 05:17 Axel Rods Not Reportable 08/24/17 05:17 Platelet Estimate Appears normal 08/24/17 05:17 Clumped Platelets Not Reportable 08/24/17 05:17 Plt Clumps, EDTA Not Reportable 08/24/17 05:17 Large Platelets Not Reportable 08/24/17 05:17 Giant Platelets Not Reportable 08/24/17 05:17 Platelet Satelliting Not Reportable 08/24/17 05:17 Plt Morphology Comment Not Reportable 08/24/17 05:17 RBC Morphology Not Reportable 08/24/17 05:17 Dimorphic RBCs Not Reportable 08/24/17 05:17 Polychromasia Not Reportable 08/24/17 05:17 Hypochromasia Not Reportable 08/24/17 05:17 Poikilocytosis Not Reportable 08/24/17 05:17 Anisocytosis 1+ 08/24/17 05:17 Microcytosis Not Reportable 08/24/17 05:17 Macrocytosis Not Reportable 08/24/17 05:17 Spherocytes Not Reportable 08/24/17 05:17 Pappenheimer Bodies Not Reportable 08/24/17 05:17 Sickle Cells Not Reportable 08/24/17 05:17 Target Cells Not Reportable 08/24/17 05:17 Tear Drop Cells Not Reportable 08/24/17 05:17 Ovalocytes Not Reportable 08/24/17 05:17 Helmet Cells Not Reportable 08/24/17 05:17 [place] Bodies Not Reportable 08/24/17 05:17 [place] Rings Not Reportable 08/24/17 05:17 Lucretia Cells Rare 08/24/17 05:17 Bite Cells Not Reportable 08/24/17 05:17 Crenated Cell Not Reportable 08/24/17 05:17 Elliptocytes Not Reportable 08/24/17 05:17 Acanthocytes (Spur) Not Reportable 08/24/17 05:17 Rouleaux Not Reportable 08/24/17 05:17 Hemoglobin C Crystals Not Reportable 08/24/17 05:17 Schistocytes Not Reportable 08/24/17 05:17 Malaria parasites Not Reportable 08/24/17 05:17 Caleb Bodies Not Reportable 08/24/17 05:17 Hem Pathologist Commnt No 08/24/17 05:17 Sodium 138 mmol/L (137-145) 08/24/17 05:17 Potassium 4.2 mmol/L (3.6-5.0) 08/24/17 05:17 Chloride 98.4 mmol/L (98-107) 08/24/17 05:17 Carbon Dioxide 26 mmol/L (22-30) 08/24/17 05:17 Anion Gap 18 mmol/L 08/24/17 05:17 BUN 19 mg/dL (9-20) 08/24/17 05:17 Creatinine 0.8 mg/dL (0.8-1.5) 08/24/17 05:17 Estimated GFR > 60 ml/min 08/24/17 05:17 BUN/Creatinine Ratio 24 % 08/24/17 05:17 Glucose 142 mg/dL (75-100) H 08/24/17 05:17 POC Glucose 198 (70-105) H 08/27/17 11:56 Hemoglobin A1c 12.3 % (4-6) H 08/23/17 10:01 Lactic Acid 1.80 mmol/L (0.7-2.0) 08/22/17 18:03 Calcium 8.9 mg/dL (8.4-10.2) 08/24/17 05:17 Total Bilirubin 0.20 mg/dL (0.1-1.2) 08/22/17 15:16 AST 11 units/L (5-40) 08/22/17 15:16 ALT 13 units/L (7-56) 08/22/17 15:16 Alkaline Phosphatase 144 units/L (35-129) H 08/22/17 15:16 C-Reactive Protein 2.50 mg/dL (0.00-1.30) H 08/25/17 19:19 Total Protein 7.1 g/dL (6.3-8.2) 08/22/17 15:16 Albumin 3.8 g/dL (3.9-5) L 08/22/17 15:16 Albumin/Globulin Ratio 1.2 % 08/22/17 15:16 Triglycerides 215 mg/dL (2-149) H 08/23/17 10:01 Cholesterol 184 mg/dL (50-199) 08/23/17 10:01 LDL Cholesterol Direct 109 mg/dL (50-130) 08/23/17 10:01 HDL Cholesterol 32 mg/dL (40-59) L 08/23/17 10:01 Cholesterol/HDL Ratio 5.75 % 08/23/17 10:01 Urine Color Straw (Yellow) 08/22/17 Unknown Urine Turbidity Clear (Clear) 08/22/17 Unknown Urine pH 6.0 (5.0-7.0) 08/22/17 Unknown Ur Specific [place] 1.011 (1.003-1.030) 08/22/17 Unknown Urine Protein <15 mg/dl mg/dL (Negative) 08/22/17 Unknown Urine Glucose (UA) >=500 mg/dL (Negative) 08/22/17 Unknown Urine Ketones Neg mg/dL (Negative) 08/22/17 Unknown Urine Blood Neg (Negative) 08/22/17 Unknown Urine Nitrite Neg (Negative) 08/22/17 Unknown Urine Bilirubin Neg (Negative) 08/22/17 Unknown Urine Urobilinogen < 2.0 mg/dL (<2.0) 08/22/17 Unknown Ur Leukocyte Esterase Neg (Negative) 08/22/17 Unknown Urine WBC (Auto) < 1.0 /HPF (0.0-6.0) 08/22/17 Unknown Urine RBC (Auto) 1.0 /HPF (0.0-6.0) 08/22/17 Unknown Urine Bacteria (Auto) 1+ /HPF (Negative) 08/22/17 Unknown Vancomycin Trough 9.4 ug/mL (5.0-20.0) 08/24/17 13:09
[2017-08-27] MEDS: PRAVACHOL PO SCH (21:37)
[2017-08-28] MEDS: PERCOCET 5/325 PO PRN ×2 (05:03→12:45)
[2017-08-28] MEDS: ZOSYN/NS 4.5GM/100ML 4.5 GM/100 ML VIAL IV SCH (08:21)
[2017-08-28] MEDS: NOVOLOG SUB-Q SCH ×2 (08:22→12:45)
[2017-08-28 08:32] VITALS: BP 107/73
[2017-08-28] MEDS ORDERED: THERMAZENE 50 GRAM TP SCH (10:00)
[2017-08-28] MEDS ORDERED: PLAVIX PO SCH (10:00)
[2017-08-28] MEDS: PLAVIX PO SCH (10:06)
[2017-08-28] MEDS: BABY ASPIRIN PO SCH (10:06)
[2017-08-28] MEDS: LEVEMIR SUB-Q SCH (10:06)
[2017-08-28] MEDS: LOVENOX SUB-Q SCH (10:06)
--- NOTE | 2017-08-28 10:38 | Discharge Summary ---
Providers - Providers Date of Admission: 08/23/17 02:13 Attending physician: DIYA ROCHA MD 08/23/17 02:13 Consult to Physician [CONS] Routine Consulting Provider: CRESENCIO GARRETT Reason For Exam: s/p revasculariation, persistent rt leg pain Place consult to:: DR GARRETT Notified:: DR GARRETT 08/23/17 11:08 Consult to Physician [CONS] Routine Consulting Provider: BRIDGETTE YEH Reason For Exam: right foot abscess Place consult to:: RUBA ANGELES Notified:: RUBA ANGELES Phone number called:: [phone] CELL Comment:: DR WANT ME TO PUT PATIENT ON HIS LIST 08/23/17 11:12 Consult to Wound/ET Nurse [CONS] Urgent Reason For Exam: toe infection, possible 5th digit debridement 08/25/17 09:31 Consult to Physician [CONS] Routine Consulting Provider: MANUELA ZAMORA Reason For Exam: lower ext non healing diabetic wound Place consult to:: Notified:: Was contact made?: Yes If yes, spoke with:: Time called:: 15:40 08/26/17 11:40 Consult to PICC Line RN [CONS] Routine Reason For Exam: iv abx for 6 weeks Type Line:: PICC 08/26/17 11:41 Consult to Case Management [CONS] Stat Services Needed at Discharge: Other Notified:: economic analysis director Additional Physician Instructions: [facility] Manuela Saldivar MD M [phone] O [phone] OUTPATIENT PARENTERAL ANTIBIOTIC THERAPY ORDERS Diagnoses: diabetic foot infection with osteomyelitis Antimicrobial administration: ceftriaxone 2 g IV q day for 6 weeks from 08/23/17 until 10/03/17 Lines:PICC Lab monitoring: CBC, CMP, CRP once a week preferly on Friday morning. Please fax results to [phone] and call [phone] for critical lab results. Manuela Saldivar Date: 08/26/17 08/27/17 14:52 Physical Therapy Evaluation and Treat [CONS] Routine Comment: Reason For Exam: RIGHT LOWER EXT PAIN Primary care physician: LEN PEÑALOZA Hospitalization Reason for admission: OSTEOMYLITIS OF THE RIGHT 5TH TOE Condition: Stable Hospital course: 57 year old man with history of diabetes and peripheral vascular disease was just discharged from the hospital on August 12. On that admission he had a nonhealing ulcer on the right foot and subsequently underwent revascularization of his right leg. He was discharged home with Bactrim and ciprofloxacin which she completed 3 days ago. He states that the swelling of the right foot never went down. The patient developed increased redness and pain of the right leg and foot, had difficulty ambulating. Complain of chills, no fever, the patient was seen by vascular and wound surgeon with arterial duplex confirms adequate perfusion to the right lower extremity (JOSHUA aprox 1), although there are some monophasic waveforms. -MRI foot showed 5th proximal phalanx osteomyelitis. Patient was noted to have osteomylitis on imaging study of the right lower ext. Pain was managed, and wound care also evaluted the patient with recommendation for patient to follow with Wound care outside. A picc line was placed on the request for ID and a recommendation for ceftriaxone 2 g IV q day for 6 weeks from 08/23/17 until 10/03/17 was approved by the [facility]. Patient was continued on plavix and ASA also statin therapy. Extensive counselling was provided on Diabetic managment as a part of the healing process. He is clinically stable at this time for discharge Cellulitis with abscess collection of the right foot Diabetic foot ulcer Osteomylitis right lower ext 5TH Toe Diabetes mellitus with hyperglycemia Severe PVD Ecoli in wound cx PVD s/p recent revascularization of the right lower extremity 4 weeks ago Peripheral neuropathy DM Disposition: [id number]/TX-06 HOME UNDER HOME [facility] Time spent for discharge: 35 mins Core Measure Documentation - Palliative Care Palliative Care/ Comfort Measures: Not Applicable - Core Measures Any of the following diagnoses?: none - VTE Discharge Requirements Deep Vein Thrombosis/Pulmonary Embolism Present on Admission: No Exam - Physical Exam Narrative exam: General appearance: Present: no acute distress - EENT Eyes: Present: PERRL, EOM intact ENT: hearing intact - Neck Neck: Present: supple, normal ROM - Respiratory Respiratory effort: normal Respiratory: bilateral: CTA - Cardiovascular Rhythm: regular Heart Sounds: Present: S1 & S2. Absent: systolic murmur, diastolic murmur - Extremities Extremities: no ischemia, pulses intact, Full ROM Extremity abnormal: No overt drainage, cloth washer back tender to touch edema (1+ edema right lower ext), erythema (RLE) Peripheral Pulses: abnormal (diminshed right edema (mild RLE), erythema (mild RLE), black (small eschar on 5th and 1st digit), pulses diminished other ( purulence between 4-5th digit web space)) Dressing in place - Abdominal General gastrointestinal: soft, non-tender, non-distended, normal bowel sounds - Integumentary Integumentary: Present: warm (right lower ext), erythema - Psychiatric Psychiatric: appropriate mood/affect, cooperative - Neurologic Neurologic: CNII-XII intact - Constitutional Vitals: Temp Pulse Resp BP Pulse Ox 98.4 F 78 14 107/73 96 08/28/17 07:37 08/28/17 07:37 08/28/17 07:37 08/28/17 07:37 08/28/17 07:37 Plan Activity: advance as tolerated, fall precautions Diet: diabetic Wound: per wound nurse instructions, other (FOLLOW AT WOUNDCARE CENTER) Special Instructions: record daily BP diary, record blood sugar diary, home health RN (IV ANTIBIOTICS) Durable Medical Equipment Needed Upon Discharge: other (D/C PICC LINE AFTER IV ABX) Follow up with: LEN PEÑALOZA MD [Primary Care Provider] - 3-5 Days BRIDGETTE YEH MD [Staff Physician] - 7 Days MANUELA ZAMORA MD [Staff Physician] - 7 Days Prescriptions: Pravastatin [Pravachol] 40 mg PO QHS #30 tablet cefTRIAXone/NS 2 GM/100 ML [Rocephin/Ns 2 gm/100 ml] 2 gm IV Q24HR 45 Days piggyback Insulin NPH/Regular [NovoLIN 70/30] 12 unit SQ BIDDIAB 30 Days ml oxyCODONE /ACETAMINOPHEN [Percocet 5/325 mg] 1 tab PO Q6H PRN #20 tablet PRN Reason: Pain, Moderate (4-6) Other Discharge Orders: Glucometer (Amb) Location: Determined By Patient Glucometer supplies[Amb] Location: Determined By Patient
--- NOTE | 2017-08-28 11:23 | Progress Note ---
Assessment and Plan Assessment: 1) Leukocytosis: from foot infection 2) Diabetic foot ulcer with 5th toe osteomyelitis -Arterial duplex confirms adequate perfusion to the right lower extremity ( JOSHUA aprox 1), although there are some monophasic waveforms. -MRI foot showed 5th proximal phalanx osteomyelitis. -wound cx + E coli resistant to levaquin -CRP=2.5 3) PVD s/p recent revascularization of the right lower extremity 4 weeks ago 4) Peripheral neuropathy 5) DM - uncontrolled Plan: -continue ceftriaxone -upon discharge will do ceftriaxone 2 g IV q day for 6 weeks from 08/23/17 until 10/03/17 I am signing off Thank you Dr Escobar for your consultation, will follow up with you. Manuela Connors MD Infectious Diseases Specialist [facility] M [phone] O [phone] Subjective Date of service: 08/28/17 Principal diagnosis: leukocytosis Interval history: Feels ok, right foot pain is better. No fever. Microbiology: Wound cultures: 08/23 E coli resistant to levaquin Current Antimicrobials: Zosyn 08/23 Previous Antimicrobials: Vancomycin 08/25 Objective - Exam Narrative Exam: General appearance: Alert in NAD, conversant Eyes: anicteric sclerae, moist conjunctivae; no lid-lag; PERRLA HENT: Atraumatic; oropharynx clear Neck: Trachea midline; supple, no thyromegaly or lymphadenopathy Lungs: CTA CV: RRR Abdomen: Soft, non-tender Extremities: right foot covered with dressings Skin: Normal temperature, turgor and texture; no rash, ulcers or subcutaneous nodules Psych: Appropriate affect, alert and oriented to person, place and time. Neuro: alert and oriented x 3. Moving all extermities Lines: No CVL / PICC - Constitutional Vitals: Vital Signs Temp Pulse Resp BP Pulse Ox 98.4 F 78 14 107/73 96 08/28/17 07:37 08/28/17 07:37 08/28/17 07:37 08/28/17 07:37 08/28/17 07:37 Temperature -Last 24 Hours Temperature 98.4 F Temperature 98.4 F Temperature 98.1 F - Labs CBC & Chem 7: 08/25/17 05:02 08/24/17 05:17 Labs: Abnormal lab results 08/27/17 08/27/17 08/27/17 Range/Units 11:56 16:09 21:18 POC Glucose 198 H 225 H 177 H (70-105) 08/28/17 Range/Units 10:09 POC Glucose 260 H (70-105)
== END 2017-08-28 14:10 | disposition home health service (06) | DRG 638 ==
LOC: ED 14:31 → 3A 08-23 02:13
PROVIDERS: ADMIT Internal Medicine; ATTEND Internal Medicine
PROC: 02HV33Z Insertion of Infusion Device into Superior Vena Cava, Percutaneous Approach (ICD-10-PCS; principal; 2017-08-23)
PROC: B5181ZA Fluoroscopy of Superior Vena Cava using Low Osmolar Contrast, Guidance (ICD-10-PCS; 2017-08-23)
DX: E11.69 Type 2 diabetes mellitus with other specified complication (principal); M86.171 Other acute osteomyelitis, right ankle and foot; L03.115 Cellulitis of right lower limb; L02.611 Cutaneous abscess of right foot; E11.621 Type 2 diabetes mellitus with foot ulcer; L97.519 Non-pressure chronic ulcer of other part of right foot with unspecified severity; Z83.3 Family history of diabetes mellitus; Z82.49 Family history of ischemic heart disease and other diseases of the circulatory system; E11.51 Type 2 diabetes mellitus with diabetic peripheral angiopathy without gangrene; E11.65 Type 2 diabetes mellitus with hyperglycemia; E11.40 Type 2 diabetes mellitus with diabetic neuropathy, unspecified
CPT/HCPCS: 36415; 71010; 80048; 80053; 80061; 80202; 81001; 82140; 82962; 83036; 85007; 85025; 85027; 86140; 87076; 87116; 87186; 90471; 90715; 93922; 93925; 96374; 96375; 99406; A9270-GY; A9577; J1650; J1815; J1818; J2270; J2405; J2543; J3370; J7040; J7050